=== PATIENT | female | born 1965 | race Caucasian/White ===

== ENCOUNTER 2023-09-11 17:57 | Emergency (ER) | payer BC, SELFPAY ==
--- NOTE | ~2023-09-11 | CT_ITS ---
EXAMINATION: CTA neck DATE: 09/11/2023 21:36 INDICATION: Numbness TECHNIQUE: Computed tomographic angiography (CTA) of the neck was performed with 100 mL Omnipaque-350 intravenous contrast. Automated exposure control and iterative reconstruction technique were employe d. The dose-length product was 569.49 mGy-cm. Maximum intensity projection and volume rendered 3D-re constructions were created by the technologist on a separate workstation. COMPARISON: CT C-spine, same date. FINDINGS: CTA NECK: Aortic arch and proximal great vessels: Bovine arch. No aneurysm or dissection. Right common carotid, carotid bifurcation, and internal carotid artery: No significant plaque.There i s 0% stenosis of the proximal right internal carotid artery relative to normal distal artery lumen di ameter (NASCET criteria). Left common carotid, carotid bifurcation, and internal carotid artery: No significant plaque.There is 0% stenosis of the proximal left internal carotid artery relative to normal distal artery lumen diam eter (NASCET criteria). Vertebral arteries: No significant plaque or stenosis. Right vertebral artery is dominant, Other findings: Subcentimeter left thyroid hypodensity which requires no additional evaluation at thi s time. IMPRESSION: No carotid or vertebral artery occlusion, dissection, or significant stenosis. Reviewed, dictated and finalized at location K. ITORY OUTSIDE SALES MANAGER
--- NOTE | ~2023-09-11 | CT_ITS ---
EXAMINATION: CT cervical spine wo con DATE: 09/11/2023 19:19 INDICATION: paraesthesia TECHNIQUE: Computed tomography (CT) of the cervical spine was performed without intravenous contrast. Automated exposure control and iterative reconstruction technique were employed. The dose-length pro duct was 538.35 mGy-cm. COMPARISON: 06/24/2023. FINDINGS: Vertebral Body Alignment: Intact. Reversed lordosis. Craniocervical and atlantoaxial alignment: Moderate degenerative change. Alignment intact. Osseous structures/fracture: No evidence of a lytic or blastic process in the visualized spine. No e vidence of acute fracture. Right C2-3 facet fusion. Cervical soft tissues: The paraspinal soft tissues planes are maintained. Mosaic attenuation in the l ungs. Degenerative changes: Degenerative changes, without severe neural foraminal or central canal narrowin g. IMPRESSION: No acute fracture or traumatic malalignment in the cervical spine. Mosaic attenuation which can be seen with asthma, bronchiolitis obliterans, hypersensitivity pneumoni tis, and chronic thromboembolic disease. Reviewed, dictated and finalized at location K. GER DIGITAL IMPRESSION: No acute fracture or traumatic malalignment in the cervical spine. Mosaic attenuation which can be seen with asthma, bronchiolitis obliterans, hyp ersensitivity pneumonitis, and chronic thromboembolic disease.
[2023-09-11 18:04] VITALS: BP 113/76; PULSE 76; RESP 20; O2SAT 100
--- NOTE | 2023-09-11 18:10 | ED.GENADULT ---
HPI - General Adult General Chief complaint: Unspecified <Gaye Menjivar November, DIE MAINTENANCE - Last Filed: 09/11/23 18:13> Stated complaint: tingling all over <Gaye Menjivar November, DIE MAINTENANCE - Last Filed: 09/11/23 18:13> Time Seen by Provider: 09/11/23 18:10 <Gaye Menjivar November, DIE MAINTENANCE - Last Filed: 09/11/23 18:13> Focused HPI: Irene Maxwell is a 58 y/o female who presents today wt reports of having sporadic paraesthesia / sharp pins and needles that has been off and on to her arms/ neck/ head/ legs / genitals/ back. She states that she had a concussion in June and she had neck adjustment by a chiropractor 6 days ago and then her symptoms started the following day, but becoming more frequent and she isn't able to sleep due to the sharp pains. She also adds that she is currently titrating off of her Paxil and that might be causing her symptoms and she also started a new supplement Adrenal Caps 5 days ago No focal weakness on exam GENERAL: Well-appearing, well-nourished, and in no acute distress. HEAD: Normocephalic, atraumatic. CHEST: Clear to auscultation. ?No respiratory distress. HEART: Regular rate and rhythm.? NEURO: ?Alert and oriented x3. Patient screened in triage and initial orders placed.? ?Additional care and disposition to be based upon?diagnostic testing and treatment. <Gaye Menjivar November, DIE MAINTENANCE - Last Filed: 09/11/23 18:13> Focused HPI: Irene Maxwell is a 58 y/o female who presents today with reports of having sporadic paraesthesia / sharp pins and needles that has been off and on to her arms/ neck/ head/ legs / genitals/ back. She states that she had a concussion in June and she had neck adjustment by a chiropractor 6 days ago and then her symptoms started the following day, but becoming more frequent and she isn't able to sleep due to the sharp pains. She also adds that she is currently titrating off of her Paxil and that might be causing her symptoms and she also started a new supplement Adrenal Caps 5 days ago. No focal weakness on exam. GENERAL: Well-appearing, well-nourished, and in no acute distress. HEAD: Normocephalic, atraumatic. CHEST: Clear to auscultation. ?No respiratory distress. HEART: Regular rate and rhythm.? NEURO: ?Alert and oriented x3. Patient screened in triage and initial orders placed.? ?Additional care and disposition to be based upon?diagnostic testing and treatment. <Kaci Wilson MD - Last Filed: 09/11/23 22:05> Related Data Allergies/adverse reactions: Allergies Allergy/AdvReac Type Severity Reaction Status Date / Time Penicillins Allergy Unknown Verified 09/11/23 19:53 Sulfa (Sulfonamide AdvReac Unknown Verified 09/11/23 19:53 Antibiotics) <Gaye Ervin APRN - Last Filed: 09/11/23 18:13> Review of Systems Review of Systems: All systems are reviewed and are negative unless stated otherwise in the HPI. <Kaci Wilson MD - Last Filed: 09/11/23 22:05> ROS unobtainable: Yes unobtainable due to endotracheal tube <Kaci Wilson MD - Last Filed: 09/11/23 22:05> Exam Narrative: General: Alert, awake, afebrile, in no acute distress. HEENT: PERRL, no rhinorrhea, no post nasal drip, oropharynx clear. Neck: Trachea midline, no JVD, no lymphadenopathy. Cardiovascular: Regular rate and rhythm, no murmurs, rubs or gallops, no peripheral edema. Respiratory: Clear to auscultation bilaterally, no tachypnea, no wheezing, no rhonchi, no rubs, no respiratory distress. Abdomen: Soft, nontender, nondistended, no rebound, no guarding, no peritoneal signs. Musculoskeletal: No joint swelling or deformity, normal muscle tone. Skin: No rashes or petechia, no signs of infection. Psychiatric: Alert and oriented, normal behavior and judgment for situation. Neurological: Alert and oriented to person, place, and time. Follows all commands. No focal deficits, speech is clear and fluent. <Kaci Wilson MD - Last Filed: 09/11/23 22:05> Course Vital Signs Vital signs: Vital Signs
[2023-09-11 18:27] LABS: Basophils Percent Auto 0.3 % (0.2-1.2); Eosinophils Absolute Auto 0.1 K/mm3 (0-0.3); Eosinophils Percent Auto 1.1 % (0-4.4); Hematocrit 36.9 % (37.0-47.0); Hemoglobin 11.8 g/dL (12.0-15.0); Immature Granulocyte Absolute 0.01 K/mm3 (0.00-0.031); Immature Granulocyte Percent A 0.1 % (0-0.5); Lymphocytes Absolute Auto 2.86 K/mm3 (0.9-3.2); Lymphocytes Percent Auto 38.9 % (18.3-44.2); Mean Corpuscular Hemoglobin 30.3 pg (26-34); Mean Corpuscular Volume 94.6 fl (80-100); Mean Platelet Volume 10.3 fl (7.4-10.4); Monocytes Absolute Auto 0.5 K/mm3 (0.1-0.6); Monocytes Percent Auto 6.4 % (2.6-8.5); Neutrophils Absolute Auto 3.9 K/mm3 (1.3-6.7); Neutrophils Percent Auto 53.2 % (45.5-73.1); Platelet Count Result 317 k/mm3 (150-375); Red Cell Distribution Width 12.6 % (11.5-14.5); White Blood Count 7.4 K/mm3 (4.5-10.0)
[2023-09-11 18:37] LABS: Alanine Aminotransferase 25 U/L (6-35); Albumin Level 4.2 g/dL (3.5-5.1); Alkaline Phosphatase 69 U/L (38-126); Anion Gap 6 mmol/L (8-16); Aspartate Amino Transferase 31 U/L (14-36); Bilirubin,Total 0.3 mg/dL (0.2-1.3); Blood Urea Nitrogen 13 mg/dL (7-17); Calcium 9.2 mg/dL (8.4-10.2); Carbon Dioxide 28 mmol/L (22-30); Chloride 104 mmol/L (98-107); Estimated CRCL calculation 83 ml/min; Estimated Glomerular Filt Rate > 60; Glucose 92 mg/dL (65-110); Potassium 3.9 mmol/L (3.4-5.0); Sodium 138 mmol/L (137-145)
[2023-09-11 19:49] VITALS: BP 116/88; PULSE 72; RESP 13; O2SAT 100
[2023-09-11 19:53] VITALS: BP 116/88; PULSE 77; PULSE 81; RESP 20; TEMP 36.4; O2SAT 99
[2023-09-11 22:16] VITALS: BP 132/70; PULSE 65; RESP 18; TEMP 36.7; O2SAT 100
== END 2023-09-11 22:17 | disposition home or self-care (01) ==
PROVIDERS: Nurse Practitioner Family; Emergency Provider Emergency Medicine; PCP Internal Medicine
DX: R20.2 Paresthesia of skin (principal)
CPT/HCPCS: 36415; 70498; 72125; 80053; 83735; 85025; 99284; Q9967

== ENCOUNTER 2024-10-13 00:55 | Emergency (ER) | payer BC, SELFPAY ==
[2024-10-13] VITALS (24 sets, daily range): BP systolic 90–128; BP diastolic 49–98; PULSE 61–96; RESP 9–19; TEMP 36.6; O2SAT 97–100
--- OUTSIDE RECORDS SUMMARY | 2024-10-13 00:58 | XMS_ITS | Encounter Summary ---
Author Organization [facility] Address [address] [place] [address] Care Team Providers Care Job Putter Up And Ticket Preparer Name Role Phone Thuan Rowell MD Unavailable Ba Lockett MD Primary Care Provider [phone] Valery Shirley DO Primary Care Provider Ba Lockett MD Primary Care Provider [phone] Ze Alberts MD Primary Care Provider [phone] Encounter Details Date Type Department Care Team (Late st Contact Info) Description 02/10/2009 [facility] Outpatient Visit [facility] [address] [place] [address] Unknown, Provider Social History Tobacco Use Types Packs/Day Years Used Date Smoking Tobacco: Never Alcohol Use Standard Drinks/Week Comments Yes 0 (1 standard drink = 0.6 oz pur e alcohol) Sex and Gender Information Value Date Recorded Sex Assigned at Not on file Gender Identity Not on file Sexual Orientation Not on file documented as of this encounter Plan of Treatment Not on file documented as of this encounter Visit Diagnoses Not on filedocumented in this encounter Care Teams Job Putter Up And Ticket Preparer Relationship Specialty Start Date End Date Thuan Rowell MD PCP - OBGYN Obstetrics and Gynecology 11/22/12 Ba Lockett MD [address] [address] PCP - General Internal Medicine 05/20/13 04/02/18 Valery Shirley DO [address] [address] PCP - General Immunology 04/03/18 03/02/22 Ba Lockett MD [address] [address] PCP - General 03/03/22 03/17/22 Ze Alberts MD [address] [facility] [address] [place] [address] PCP - General 03/18/22 documented as of this encounter
--- OUTSIDE RECORDS SUMMARY | 2024-10-13 00:58 | XMS_ITS | Clinical Summary ---
Author Organization [facility] Address [address] [place] [id number] Phone Care Team Providers Care Workers' Compensation Claims Supervisor Name Role Phone Unavailable Primary Care Provider Unavailabl e Allergies Active Allergy Reactions Criticality Noted Date Comments Penicillins Rash Low 11/25/2023 Sulfa (Sulfonamide Antibiotics) Rash Low 11/07 Medications chlorpheniramine -HYDROcodone (TUSSIONEX) 8-10 mg/5 mL Suspension, Sust. Release 12HRIndications: Pneumonia of left lower lobe due to infectious organism Take 5 mL by mouth every 12 hours as needed for Cough. Max Daily Amount: 10 mL 140 mL 11/25/2023 Active Encounters Date Type Department Care Team Description 10/08/2024 External Device Data [facility]STRACTION Provider, Abstract 09/24/2024 External Device Data [facility] Provider, Abstract 09/18/2024 External Device Data [facility] Provider, Abstract 09/17/2024 External Device Data [facility] Provider, Abstract 09/14/2024 External Device Data [facility] Provider, Abstract 09/13/2024 External Device Data [facility] Provider, Abstract 09/11/2024 External Device Data [facility] Provider, Abstract 09/10/2024 External Device Data [facility] Provider, Abstract 09/03/2024 External Device Data [facility] Provider, Abstract 08/13/2024 External Device Data [facility] Provider, Abstract 08/06/2024 External Device Data [facility] Provider, Abstract 08/01/2024 External Device Data [facility] Provider, Abstract 07/23/2024 External Device Data [facility]CTION Provider, Abstract from Last 3 Months Social History Tobacco Use Types Packs/Day Years Used Date Smoking Tobacco: Unknown Feeling Safe Answer Date Recorded Are you in a relationship wi th someone who hurts you emotionally and/or physically? No 11/25/2023 Comments Unknown Sex and Gender Information Value Date Recorded Sex Assigned at Not on file Legal Sex Female 6:14 PM PROCESS WORKER Gender Identity Not on file Sexual Orientation Not on file Last Filed Vital Signs Vital Sign Reading Time Taken Comments Blood Pressure 105/63 11/25/2023 8:45 AM CDT Pulse 74 11/25/2023 8:45 AM CDT Temperature 36.6 C (97.9 F) 11/25/2023 7:53 AM CDT Respiratory Rate 20 11/25/2023 7:53 AM CDT Oxygen Saturation 94% 11/25/2023 8:45 AM CDT Inhaled Oxygen Concentration - - Weight 98.4 kg (217 lb) 11/25/2023 7:53 AM CDT Height 170.2 cm (5' 7 ) 11/25/2023 7:53 AM CDT Body Mass Index 33.99 11/25/2023 7:53 AM CDT Plan of Treatment Health Maintenance Due Date Last Done Comments Pre-Diabetes and Diabetes Screening 1966 HEPATITIS B VACCINES (1 of 3 - 19+ 3-dose series) 1985 HPV/Cotest (21-29) 09/09/1987 HPV/Cotest (30-65) 1996 COLORECTAL SCREENING 09/09/2011 Colorectal Cancer Screening 09/09/2011 FIT-DNA Q 3 years 09/09/2011 FIT/FOBT Q 1 year 09/09/2011 Flex Sig/CT Colonography Q 5 years 09/09/2011 CERVICAL CANCER SCREENING 03/18/2023 PAP SMEAR 03/18/2023 03/18/2020 BREAST CANCER SCREENING 12/08/2023 12/08/19 23, 12/07/2022, 10/12/2021, Additional history exists INFLUENZA VACCINE (#1) 2024 3, 04/22/2020, 04/09/2019 COVID-19 Vaccine (2023-2 5 season) 2024 03/04/2022, 09/07/2021, 08/28/2020, Additional history exists DTAP/TDAP/TD VACCINES (3 - T d or Tdap) 06/12/2033 06/12/2023, 07/10/2006 ZOSTER VACCINE Completed 08/07/2018, 02/06/2018 Insurance [facility] [employer]
--- OUTSIDE RECORDS SUMMARY | 2024-10-13 00:58 | XMS_ITS | Clinical Summary ---
Author Organization [facility] [employer] Address [address] [place] [address] Care Team Providers Care Oracle Security Consultant Name Role Phone Thuan Rowell MD Unavailable [phone] Ze Alberts MD Primary Care Provider [phone] Source Comments [facility] [employer],non-owned Affiliates and Associated Physician Practices is amultiple site organization consisting of ambulatory clinics and hospital sitesin [place], [place], [place] and [place]. This disclosure is being madepursuant to the Care Everywhere program and may not contain all information available regarding this patient. Last updated 18.[facility] Allergies Active Allergy Reactions Criticality Noted Date Comments Adhesive Sensitivity Rash Medium Penicillins Rash 01/13/2009 Sulfa Drugs Rash Medium Medications * Be aware that medications may not be up to date on this document. Alwaysverify current medications with the patient. Medication Sig Dispensed Refills Start Date End Date Status MULTI-VITAMIN PO Take by mouth daily. Active fish oil/omega-3 fatty acids (FISH OIL) 1000 MG capsule Take 2000 mg by mouth daily. 1000, 2 daily Active Conj Estrogens-Bazedoxif wiliam (DUAVEE) 0.45-20 MG Active PARoxetine HCl (PAXIL PO) Take 40 mg by mouth at bedtime Active Loperamide (IMODIUM) 2 MG tablet Take 1 tablet by mouth 4 times daily as needed for Diarrhea 20 tablet 04/03/2018 Active Additional Information Patient not taking.Reported on 01/03/2023 Cholecalciferol (VITAMIN D3) 400 UNITS tablet Take 2,000 Units by mouth once daily Active Glucosamine-Chondro itin (GLUCOSAMINE CHONDR COMPLEX PO) Active ezetimibe (ZETIA) 10 MG tablet 12/01/2017 Active Bijuva 1-100 MG CAPS 12/31/2022 Active rosuvastatin (Crestor) 10 MG tablet 10/07/2022 Active predniSONE (Deltasone) 10 MG tablet Take 4 tablets daily for 4 days, take 3 tablets daily for 2 days, take 2 tablets daily for 2 days, then take 1 tablet daily for 2 days 28 tablet 01/03/2023 Active triamcinolone acetonide (Kenalog) 0.1 % cream Apply to affected area 3 times daily 30 g 01/03/2023 Active Active Problems Problem Noted Date Diagnosed Date Colitis 04/03/2018 Intractable vomiting with nausea 04/03/2018 Multiple myeloma 10/27/2016 Cervical radiculopathy 05/14/2009 Neuropathic pain syndrome (non-herpetic) 009 Overview (05/14/2009): Right arm & bilat feet Injury, other and unspecified, knee, leg, ankle, and foot 02/21/2009 Peripheral neuropathy 02/04/2009 Cervical spondylosis 02/04/2009 Lumbosacral spondylosis 02/04/2009 Hypercholesteremia 01/13/2009 DJD (degenerative joint disease) of cervical spi ne 01/13/2009 Overview (01/13/2009): LUMBAR AND THORACIC Migraine 01/13/2009 Resolved Problems Problem Noted Date Diagnosed Date Resolved Date Dysenteric diarrhea 04/03/2018 04/05/20 18 Female stress incontinence 01/13/2009 0 02/04/2009 Overview (02/04/2009): Resolved off caffeine Immunizations Name Administration Dates Next Due DTaP VACCINE IM (6wk-6yrs) 07/10/2006 INFLUENZA VACCINE 07/10/2007 PPD 07/10/2007 Family History Medical History Relation Name Comments Heart Disease Brother Hypercholesterolemia Brother Anemia Father Heart Disease Father Heart Failure Father Hypercholesterolemia Father Arthritis Mother Heart Disease Mother Heart Failure Mother Hypercholesterolemia Mother Hypertension Mother Relation Name Status Comments Brother Father Mother Social History Tobacco Use Types Packs/Day Years Used Date Smoking Tobacco: Never Smokeless Tobacco: Never Tobacco Cessation:Counseling Given: No Alcohol Use Standard Drinks/Week Comments No 0 (1 standard drink = 0.6 oz pur e alcohol) PHQ-2 Answer Date Recorded PHQ2 TOTAL SCORE 0 01/03/2023 Sex and Gender Information Value Date Recorded Sex Assigned at Not on file Gender Identity Not on file Sexual Orientation Not on file Last Filed Vital Signs Vital Sign Reading Time Taken Comments Blood Pressure 122/65 01/03/2023 3:34 PM CDT Pulse 78 01/03/2023 3:34 PM CDT Temperature 36.6 C (97.8 F) 01/03/2023 3:34 PM CDT Respiratory Rate 18 01/03/2023 3:34 PM CDT Oxygen Saturation 99% 01/03/2023 3:34 PM CDT Inhaled Oxygen Concentration 98% 04/03/2018 4 :27 AM CDT Weight 108.9 kg (240 lb) 01/03/2023 3:34 PM CDT Height 171.5 cm (5' 7.5 ) 01/03/2023 3:34 PM CDT Body Mass Index 37.03 01/03/2023 3:34 PM CDT Plan of Treatment Health Maintenance Due Date Last Done Comments COLOGUARD (AGES 45-75) - COLON CA SCREENING 1966 COLON MONITORING 1966 COLONOSCOPY - COLON CA SCREENING 1966 CT COLONOGRAPHY - COLON CA SCREENING 1966 Colorectal Cancer Screening 1966 FIT - COLON CA SCREENING 1966 FLEX SIG - COLON CA SCREENING 1966 HIV SCREENING 1981 HEPATITIS C SCREENING 09/03/1984 HEPATITIS B VACCINE (1 of 3 - 19+ 3-dose series) 1985 PNEUMOCOCCAL VACCINE 50+ (1 of 2 - PCV) 1985 PNEUMOCOCCAL VACCINE (1 of 2 - PCV) 1985 ZOSTER VACCINE (1 of 2) 1985 PAP SMEAR 04/02/2012 04/02/2009 DTAP/TDAP/TD VACCINES (2 - Tdap) 07/10/2016 07/10/2006 COVID-19 VACCINE ( season) 2024 05/02/2022, 03/04/2022, 09/07/2021, Additional history exists DEPRESSION SCREENING 07/10/2024 01/03/2023 MAMMOGRAM 12/07/2024 12/07/2022, 11/07, 10/07/2011, Additional history exists INFLUENZA VACCINE (Season Ended) 2025 04/22/2020, 04/09/2019, 04/19/2016, Additional history exists HIB VACCINE Aged Out No longer eligi ble based on patient's age to complete this topic HPV VACCINE Aged Out No longer eligi ble based on patient's age to complete this topic MENINGOCOCCAL (Group B) VACCINE SHARED DECISION-MAKING Aged Out No longer eligible based on patient's age to complete this topic MENINGOCOCCAL GROUPS A/C/Y/W VACCINE Aged Out No longer eligible based on patient's age to complete this topic Procedures Procedure Name Priority Date/Time Associated Diagnosis Comments MAMMO BILAT DIAGNOSTIC Routine 11/22/2012 3:27 PM CDT Lump or mass in breast PAP THINPREP Routine 04/02/2009 from Last 3 Months or Most Recently Relevant to Health Maintenance Results * (ABNORMAL) ZEE DIAG DIRECT DIG IMAGE BILATERAL G0204 (11/22/2012 3:27 PM CDT) Anatomical Region Laterality Modality Bilateral Mammography 11/22/2012 3:28 PM CDT Narrative 11/22/2012 3:28 PM CDT EXAMINATION: Bilateral digital diagnostic mammogram and left breast ultrasound on 11/22/2012. INDICATION: Palpable left breast lump. Routine mammogram right breast. FINDINGS: Computer assisted detection was utilized. The tissue density is dense which decreased the overall sensitivity of the mammogram. Three views of each breast are obtained including the spot compression images of the left breast with a marker over at the area clinical concern. There is no discrete mass, suspicious calcification or significant new finding since the prior mammogram especially in the left breast near the marker. Targeted left breast sonogram is then performed. There is a wider than taller smoothly marginated hypoechoic nodule posterior to the nipple measuring 9.2 x 6.8 x 13.5 mm in diameter not corresponding to the palpable area. The finding probably a fibroadenoma. It is not identified on the mammogram. Short-term followup recommended. ASSESSMENT: BIRADS Category 3: Probably benign finding. Short interval follow up suggested. RECOMMENDATION: Left breast mammogram and sonogram in six months. Procedure Note Eduardo Silva MD - 11/22/2012 EXAMINATION: Bilateral digital diagnostic mammogram and left breast ultrasound on 11/22/2012. INDICATION: Palpable left breast lump. Routine mammogram right breast. FINDINGS: Computer assisted detection was utilized. The tissue density is dense which decreased the overall sensitivity of the mammogram. Three views of each breast are obtained including the spot compression images of the left breast with a marker over at the area clinical concern. There is no discrete mass, suspicious calcification or significant new finding since the prior mammogram especially in the left breast near the marker. Targeted left breast sonogram is then performed. There is a wider than taller smoothly marginated hypoechoic nodule posterior to the nipple measuring 9.2 x 6.8 x 13.5 mm in diameter not corresponding to the palpable area. The finding probably a fibroadenoma. It is not identified on the mammogram. Short-term followup recommended. ASSESSMENT: BIRADS Category 3: Probably benign finding. Short interval follow up suggested. RECOMMENDATION: Left breast mammogram and sonogram in six months. Thuan Rowell MD MAMMO ORDERABLES * PAP THINPREP (04/02/2009) Cervical swab (specimen) PART OF UTERINE CERVIX / Unknown 04/02/2009 [facility] - 05/07/2009 12:40 PM CDT Preferred Lab:->OTHER EXTERNAL LAB Melida Bryant MD LAB - PATHOLOGY/CY TOLOGY ORDERABLES [facility] from Last 3 Months or Most Recently Relevant to Health Maintenance Advance Directives * Full Code (Latest Code Status on File) Date Activated Date Inactivated Comments 04/03/2018 4:27 AM 04/05/2018 7:09 PM Care Teams Oracle Security Consultant Relationship Specialty Start Date End Date Thuan Rowell MD PCP - OBGYN Obstetrics and Gynecology 11/22/12 Ze Alberts MD [address] [facility] [address] [place] [address] PCP - General 03/18/22
--- NOTE | 2024-10-13 01:05 | ECG_ITS ---
Test Date: 2024-10-13 01:24:42 Measurements Intervals [place] Rate: 63 P: 15 IN: 130 QRS: 39 QRSD: 102 T: 35 QT: 415 QTc: 428 Interpretive Statements SINUS RHYTHM WITH SINUS ARRHYTHMIA INCOMPLETE RIGHT BUNDLE BRANCH BLOCK BASELINE ARTIFACT- V5 BORDERLINE ECG No previous ECG available for comparison Electronically Signed On 10-13-2024 07:32:48 CDT by Naren Brewer D.O.
[2024-10-13 01:23] LABS: Basophils Percent Auto 0.2 % (0.2-1.2); Eosinophils Absolute Auto 0.1 K/mm3 (0-0.3); Eosinophils Percent Auto 1.4 % (0-4.4); Hematocrit 36.5 % (37.0-47.0); Immature Granulocyte Absolute 0.01 K/mm3 (0.00-0.031); Immature Granulocyte Percent A 0.2 % (0-0.5); Lymphocytes Absolute Auto 3.08 K/mm3 (0.9-3.2); Lymphocytes Percent Auto 47.8 % (18.3-44.2); Mean Corpuscular HGB Conc 32.9 g/dl (32-36); Mean Corpuscular Hemoglobin 30.3 pg (26-34); Mean Corpuscular Volume 92.2 fl (80-100); Mean Platelet Volume 10.4 fl (7.4-10.4); Monocytes Absolute Auto 0.5 K/mm3 (0.1-0.6); Monocytes Percent Auto 8.4 % (2.6-8.5); Neutrophils Absolute Auto 2.7 K/mm3 (1.3-6.7); Platelet Count Result 290 k/mm3 (150-375); Red Blood Count 3.96 M/mm3 (4.2-5.4); Red Cell Distribution Width 12.7 % (11.5-14.5); White Blood Count 6.5 K/mm3 (4.5-10.0)
[2024-10-13 01:33] LABS: Acetaminophen < 10 ug/mL (10-30); Alanine Aminotransferase 25 U/L (6-35); Alkaline Phosphatase 55 U/L (38-126); Anion Gap 9 mmol/L (4-12); Aspartate Amino Transferase 30 U/L (14-36); Bilirubin,Total 0.3 mg/dL (0.2-1.3); Blood Urea Nitrogen 14 mg/dL (7-17); Calcium 8.9 mg/dL (8.4-10.2); Carbon Dioxide 27 mmol/L (22-30); Chloride 104 mmol/L (98-107); Estimated CRCL calculation 88 ml/min; Estimated Glomerular Filt Rate > 60; Ethanol < 10 mg/dL (<10); Glucose 97 mg/dL (65-110); Salicylate < 1.0 mg/dL (2-20); Sodium 140 mmol/L (137-145)
[2024-10-13 01:36] LABS: BEDSIDEPREGUCG Negative (Negative)
--- NOTE | 2024-10-13 01:39 | PC.NURSE ---
this rn spoke with Elizabeth RN at poison control who states moderate to mild symptoms such as tachycardia, hypertension, nausea, vomiting, jerking. pt took a subtoxic dose. Elizabeth recommends an observation for 4 hours. Elizabeth states to obtain x1 more ekg prior to discharge/ crisis arrival. Elizabeth recommends sodium bicarb for widended QRS and potassium and magnesium for prolonged QT intervals. Elizabeth from posion control states that that she would fax an information sheet
[2024-10-13 01:58] LABS: SARS-CoV-2 RNA PCR Negative (Negative)
[2024-10-13 02:01] LABS: Add Urine Microscopic? YES; Appearance Urine Cloudy (Clear); Bacteria Urine 1+ /hpf; Bilirubin Urine Negative (Negative); Blood Urine 1+ (Negative); Color Urine Yellow (Yellow); Glucose Urine UA Negative (Negative); Ketones Urine Negative (Negative); Leukocyte Esterase Ur Negative LEU/UL (Negative); Nitrate Urine Negative (Negative); Non Pathogenic Casts 0-2; Protein Urine Negative (Negative); Specific Grav Ur 1.008 (1.001-1.035); Squamous Epithelial Cell Urine Occasional /hpf (Few); Urobilinogen Urine 0.2 mg/dL (<2.0); pH Urine 6.5 (5.0-9.0)
--- NOTE | 2024-10-13 02:07 | PC.NURSE ---
patient utilizes the call light correctly stating that she is having visual hallucinations of the glove boxes on the wall moving.
[2024-10-13 02:13] LABS: Amphetamine Screen Urine Negative (Negative); Barbiturate Screen Urine Negative (Negative); Benzodiazepines Screen Urine Negative (Negative); Cannabinoid Screen Urine Negative (Negative); Cocaine Screen Urine Negative (Negative); Methadone Screen Urine Negative (Negative); Opiate Screen Urine Negative (Negative); Phencyclidine Screen Urine Negative (Negative)
--- NOTE | 2024-10-13 02:45 | PC.NURSE ---
this rn updated patient home medications.
--- NOTE | 2024-10-13 02:47 | ECG_ITS ---
Test Date: 2024-10-13 02:50:53 Measurements Intervals [place] Rate: 69 P: 63 VT: 133 QRS: 42 QRSD: 108 T: 8 QT: 416 QTc: 448 Interpretive Statements SINUS RHYTHM INCOMPLETE RIGHT BUNDLE BRANCH BLOCK BORDERLINE ST-T WAVE ABNORMALITY- ANT/INF LEADS BORDERLINE ECG Compared to ECG 10/13/2024 01:24:42 NO SIGNIFICANT CHANGE Electronically Signed On 10-13-2024 07:34:17 CDT by Naren Brewer D.O.
--- NOTE | 2024-10-13 02:57 | PC.NURSE ---
patient appropriately using call light to state that she is having increased chest pain and increased visual hallucinations and now having auditory hallucinations of a womans voice. pt states she is unsure of what the voices are stating to her but denies being controlled by them at this time. edp dr. baker aware of patient condition changes. no new orders at this time.
--- NOTE | 2024-10-13 03:47 | PC.NURSE ---
patient appropriately used call light to state she needed to use the restroom. pt states she is unsure if she can walk to the bathroom due to feeling her legs are cramping and feel weak. thsi rn offered patient a bedpan at this time. pt placed on a bed izquierdo and was able to use the bed izquierdo appropriately. After patient states she has finished using the bed izquierdo and bed izquierdo removed patient continued to urinate. pt states she is unaware that she was continuing to urinate at this time. pt was given a partial bed bath, sheets and gown changed at this time.
--- NOTE | 2024-10-13 03:54 | PC.NURSE ---
patient given water/ white soda/ saltine crackers at this time due to patient request. pt able to keep food/ drink down at this time successfully.
--- NOTE | 2024-10-13 06:15 | PC.NURSE ---
per kiln charger J[facility] crisis to be called to evaluate patient.
--- NOTE | 2024-10-13 06:21 | ED_ITS ---
HPI - Overdose General Chief Complaint: Overdose Stated Complaint: depression, overdose on benadryl Time Seen by Provider: 10/13/24 06:20 Source: patient and family ( Elizabeth) Mode of arrival: ambulatory Limitations: no limitations History of Present Illness HPI Narrative: Patient presents after overdosing on diphenhydramine in a suicide attempt. She reports being overwhelmed with a lot of life stressors and did not how much more she could take. She reports taking approximately 13 tablets of 25 mg diphenhydramine between 29 and 44. She initially stated she immediately regretted this and check it out and try to force herself to vomit but was unable to. She states lately she has been stress eating but otherwise denies any self- injurious behavior. She is on 10 mg Paxil daily. Nurse reports initially she was having visual and auditory hallucinations. Nurse called [facility] who advised on what to watch for, given observation period timeline, and advised watching for HTN. She had transiently had some hypotension overnight. Also had been incontinent. At the time of my assessment, patient is no longer having visual and auditory hallucinations. She has no complaints. She is appropriately answering all questions. She denies any prior times. No previous hospitalizations and mental health facility. She denies any access to guns. Has a supportive partner at bedside. Related Data Home Medications ?Medication ?Instructions ?Recorded ?Confirmed ?Last Taken ?Type estradiol 1 mg-progesterone 100 mg 1 cap PO QPM 10/13/24 10/13/24 Unknown History capsule (Bijuva) ezetimibe 10 mg tablet 10 mg PO DAILY 10/13/24 10/13/24 Unknown History methylphenidate HCl 20 mg 20 mg PO QPM 10/13/24 10/13/24 Unknown History tablet,extended release methylphenidate HCl 5 mg tablet 5 mg PO QPM 10/13/24 10/13/24 Unknown History paroxetine HCl 10 mg tablet 10 mg PO DAILY 10/13/24 10/13/24 Unknown History rosuvastatin 10 mg tablet 10 mg PO DAILY 10/13/24 10/13/24 Unknown History Allergies Allergy/AdvReac Type Severity Reaction Status Date / Time Penicillins Allergy Unknown Verified 10/13/24 01:37 Sulfa (Sulfonamide AdvReac Unknown Verified 10/13/24 01:37 Antibiotics) [facility] Social History Social History Substance use type: does not use Exam 2 Narrative: GENERAL: Well-appearing, well-nourished, and in no acute distress. HEAD: Normocephalic, atraumatic. EYES: Non injected, non icteric. PERRL, appropriate for light. No ocular clonus ENT: Nares clear, no rhinorrhea or epistaxis. NECK: Supple. CHEST: Speaking in full sentences. No respiratory distress. HEART: Regular rate and rhythm. . ABDOMEN: Soft, nondistended. EXTREMITIES: Normal range of motion. No lower extremity edema. SKIN: Warm, dry, no rash. NEURO: No focal deficits. Alert and oriented x3. No abnormal movements appreciated. PSYCH: Normal / congruent mood and affect. Appearance: Well kempt. Behavior: Calm, good eye contact, in no acute distress. Speech: Appropriate rate, quantity and volume. Endorsed that she had been having SI which prompted her to take the pills. No Auditory/visual hallucinations at the time of my exam. Does not appear to be responding to internal stimuli. Course Vital Signs Vital signs: Vital Signs Temperature 98 F 10/13/24 01:06 Pulse Rate 67 10/13/24 01:06 Respiratory Rate 16 10/13/24 01:06 Blood Pressure 127/69 10/13/24 01:06 Pulse Oximetry 100 10/13/24 01:06 Oxygen Delivery Room Air 10/13/24 01:06 Temperature 98 F 10/13/24 01:06 Pulse Rate 80 10/13/24 08:28 Respiratory Rate 17 10/13/24 08:28 Blood Pressure 121/79 10/13/24 08:28 Pulse Oximetry 99 10/13/24 08:28 Oxygen Delivery Room Air 10/13/24 01:29 MDM - Overdose MDM Narrative Medical decision making narrative: Patient presents after overdosing diphenhydramine in attempted suicide. Reports taking 13 tablets 25mg diphenhydramine between 29 and 44. In the emergency department they are afebrile with vital signs within normal limits. Urine drug screen and alcohol negative. Patient had been incontinent overnight per RN, presume overflow incontinence possibly. CMP unremarkable. Salicylate and acetaminophen normal Urinalysis concerning for possible urinary tract infection. She denies any symptoms such as dysuria, hematuria urgency or frequency but out of an abundance of precaution will treat. Patient is assessed at bedside and is asymptomatic at this time. She has no complaints. Pupils are appropriate. Patient has been able to urinate. At this time she is medically clear for assessment and potential transportation by psych/crisis. TSH had been abnormal but Normal T4. Normal T3. Likely subclinical hypothyroidism. Crisis team spent extensive time with patient and her partner. Patient currently on Paxil and has an appointment with her counselor. Patient exhibits regret for her actions and otherwise can point things that are supportive measures including having resources available to her, a supportive marriage partner/spouse/, and a job that she enjoys. Given this, a long conversation was had regarding the possibility of safety planning and deflecting. All parties (patient, , Crisis team, and myself) feel comfortable with this. I did advise crisis team to discuss with patient and her that would be recommended that she not have access to medications and that they be locked up in the interim given that she had displayed this impulsivity. Patient otherwise stable for discharge. Advised to follow-up with the resources she was provided and return with any new worsening recurring symptoms. Differential Diagnosis Differential diagnosis: Likely drug overdose and other (Suicide attempt by drug overdose; considered serotonin syndrome) Lab Data Attestation: I reviewed the patient's lab results. Lab results narrative: CBC unremarkable 10/13/24 01:16 10/13/24 01:16 Labs: Lab Results 10/13/24 10/13/24 10/13/24 Range/Units 01:16 01:29 01:50 WBC 6.5 (4.5-10.0) K/mm3 RBC 3.96 L (4.2-5.4) M/mm3 Hgb 12.0 (12.0-15.0) g/dL Hct 36.5 L (37.0-47.0) % MCV 92.2 (80-100) fl MCH 30.3 (26-34) pg MCHC 32.9 (32-36) g/dl RDW 12.7 (11.5-14.5) % Plt Count 290 (150-375) k/mm3 MPV 10.4 (7.4-10.4) fl Immature Gran % (Auto) 0.2 (0-0.5) % Neut % (Auto) 42.0 L (45.5-73.1) % Lymph % (Auto) 47.8 H (18.3-44.2) % [place] % (Auto) 8.4 (2.6-8.5) % Eos % (Auto) 1.4 (0-4.4) % Baso % (Auto) 0.2 (0.2-1.2) % Lymph # (Auto) 3.08 (0.9-3.2) K/mm3 [place] # (Auto) 0.5 (0.1-0.6) K/mm3 Eos # (Auto) 0.1 (0-0.3) K/mm3 Baso # (Auto) 0.0 (0.0-0.1) K/mm3 Abs Immat Gran (auto) 0.01 (0.00-0.031) K/mm3 Absolute Neuts (auto) 2.7 (1.3-6.7) K/mm3 Absolute Nucleated RBC 0.000 (0.0-0.012) K/mm3 Nucleated RBC % 0.0 (0.0-0.2) % Sodium 140 (137-145) mmol/L Potassium 4.0 (3.4-5.0) mmol/L Chloride 104 (98-107) mmol/L Carbon Dioxide 27 (22-30) mmol/L Anion Gap 9 (4-12) mmol/L BUN 14 (7-17) mg/dL Creatinine 0.72 (0.7-1.0) mg/dL Estim Creat Clear Calc 88 ml/min Estimated GFR > 60 (59 - ) Glucose 97 (65-110) mg/dL Calcium 8.9 (8.4-10.2) mg/dL Total Bilirubin 0.3 (0.2-1.3) mg/dL AST 30 (14-36) U/L ALT 25 (6-35) U/L Alkaline Phosphatase 55 (38-126) U/L Total Protein 7.0 (6.3-8.2) g/dL Albumin 4.0 (3.5-5.1) g/dL TSH 5.390 H (0.465-4.680) uIU/mL Thyroxine (T4) 7.62 (5.53-11.0) ug/dL Free T3 pg/mL 2.93 (2.71-6.16) pg/mL Urine Color Yellow (Yellow) Urine Appearance Cloudy H (Clear) Urine pH 6.5 (5.0-9.0) Ur Specific [place] 1.008 (1.001-1.035) Urine Protein Negative (Negative) mg/dL Urine Glucose (UA) Negative (Negative) mg/dL Urine Ketones Negative (Negative) mg/dL Ur Blood (Man) 1+ H (Negative) Urine Nitrate Negative (Negative) Urine Bilirubin Negative (Negative) Urine Urobilinogen 0.2 (<2.0) mg/dL Leukocyte Esterase Rfl Negative (Negative) MARLI/UL Urine RBC 3-5 H (0-2) /hpf Urine WBC 6-10 H (0-3) /hpf Ur Squamous Epith Cells Occasional (Few) /hpf Urine Bacteria 1+ H /hpf Urine Casts 0-2 POC Urine HCG, Qual Negative (Negative) Salicylates < 1.0 L (2-20) mg/dL Urine Opiates Screen Negative (Negative) Urine Methadone Screen Negative (Negative) Acetaminophen < 10 L (10-30) ug/mL Ur Barbiturates Screen Negative (Negative) Ur Phencyclidine Scrn Negative (Negative) Ur Amphetamine Screen Negative (Negative) U Benzodiazepines Scrn Negative (Negative) Urine Cocaine Screen Negative (Negative) U Cannabinoids Screen Negative (Negative) Ethyl Alcohol < 10 (<10) mg/dL SARS-CoV-2 RNA (RT-PCR) Negative (Negative) ECG Data EKG #1: Attestation: I personally reviewed and interpreted this ECG as follows: ECG completion date: 10/13/24 ECG completion time: 01:24 Interpretation: Normal sinus rhythm at a rate of 63 beats per minute. IL interval 130. QRS 102. QT/QTC 415/423. There is some R to R variation consistent with a sinus arrhythmia likely due to respiratory variation and otherwise benign finding. Good R-wave progression across the precordial leads. No T-wave inversions. Of note QRS is appropriate. EKG #2: Attestation: I personally reviewed and interpreted this ECG as follows: ECG completion date: 10/13/24 ECG completion time: 02:50 Interpretation: Normal sinus rhythm at a rate of 69 beats per minute. IL interval 133. QRS 108. QT/QTC 416/436. Of note appropriate QRS duration. Good R-wave progression across the precordial leads. T-wave inversion in 3 but upright in contiguous inferior leads 2 and AVF. There also T-wave inversions in V3 and V4. V3 might be due to lead placement. Incomplete RBBB given QRS less [id number]; RSR' M-shaped pattern in V1-V3; to a lesser extent wide, slurred S wave in lateral leads (I, aVL, V5-6) Discharge Plan Discharge Clinical Impression: Intentional drug overdose, Suicide attempt, UTI (urinary tract infection), Subclinical hypothyroidism Patient Disposition: Home Condition: Stable Instructions: Antibiotic Form, Urinary Tract Infection in Women (DC), Subclinical Hypothyroidism (ED), Help Prevent Suicide (ED) Additional Instructions: Follow-up with the resources you are provided including the outpatient therapy option(s). Continue taking your medications as prescribed. Continue working with her therapist. Given the possible urinary tract infection seen on urinalysis, you received the 1st dose of antibiotic in the emergency department with rest the course prescribed. Follow-up with primary care physician. Return to the emergency department any new or worsening or recurring symptoms. Patient Language: Guatemalan Prescriptions: New nitrofurantoin monohyd/m-cryst [Macrobid] 100 mg capsule 100 mg PO Q12H 5 Days Qty: 9 0RF Rx Instructions: must administer with a meal/food; received first dose in ED 4/6 AM No Action Bijuva 1-100 mg capsule 1 cap PO QPM ezetimibe 10 mg tablet 10 mg PO DAILY methylphenidate HCl 20 mg tablet extended release 20 mg PO QPM methylphenidate HCl 5 mg tablet 5 mg PO QPM paroxetine HCl 10 mg tablet 10 mg PO DAILY rosuvastatin 10 mg tablet 10 mg PO DAILY Follow-up/Referrals: [place],Ze Rooney MD [Primary Care Provider] - Stand Alone Forms: Work/School Release IP Time of Disposition: 08:51
--- OUTSIDE RECORDS SUMMARY | 2024-10-13 06:43 | XMS_ITS | Clinical Summary ---
Author Organization [email or web address] Address [address] [facility] [place] [place] [address] Care Team Providers Care Aviation Electrician Name Role Phone Thuan Rowell MD Unavailable [phone] Ze Alberts MD Primary Care Provider [phone] Source Comments [email or web address],non-owned Affiliates and Associated Physician Practices is amultiple site organization consisting of ambulatory clinics and hospital sitesin [place], [place], [place] and [place]. This disclosure is being madepursuant to the Care Everywhere program and may not contain all information available regarding this patient. Last updated 18.[email or web address] Allergies Active Allergy Reactions Criticality Noted Date [...] PART OF UTERINE CERVIX / Unknown 04/02/2009 [facility] - 05/07/2009 12:40 PM CDT Preferred Lab:->OTHER EXTERNAL LAB Melida Bryant MD LAB - PATHOLOGY/CY TOLOGY ORDERABLES [facility] from Last 3 Months or Most Recently Relevant to Health Maintenance Advance Directives * Full Code (Latest Code Status on File) Date Activated Date Inactivated Comments 04/03/2018 4:27 AM 04/05/2018 7:09 PM Care Teams Aviation Electrician Relationship Specialty Start Date End Date Thuan Rowell MD PCP - OBGYN Obstetrics and Gynecology 11/22/12 Ze Alberts MD [address] [facility] [address] [place] [address] PCP - General 03/18/22
--- OUTSIDE RECORDS SUMMARY | 2024-10-13 06:43 | XMS_ITS | Encounter Summary ---
Author Organization [facility] Healthcare Address [address] [place] [address] Care Team Providers Care Shellacker Name Role Phone Ze Alberts MD Primary Care Provider [phone] Ze Alberts MD Unavailable [phone] Referral, Self Unavailable Unavailable Fidel Triana MD Unavailable Antoine Martinez MD Unavailable [phone] Fidel Triana MD Unavailable Reason for Visit * Reason Onset Date Comments order 05/18/2022 Encounter Details Date Type Department Care Team (Late st Contact Info) Description 05/18/2022 Telephone [facility] [place] [facility] [address] [facility] [address] [place] [address] Chritsie Odom MD PhD [address] [place] [address] order Social History Tobacco Use Types Packs/Day Years Used Date Smoking Tobacco: Never Smokeless Tobacco: Never Alcohol Use Standard Drinks/Week Comments Yes 0 (1 standard drink = 0.6 oz pur e alcohol) very seldomly AUDIT-C Answer Date Recorded Q1: How often do you have a drink containing alc ohol? Never 10/29/2021 Q2: How many drinks containi ng alcohol do you have on a typical day when you are drinking? 1 or 2 10/29/2021 Q3: How often do you have si x or more drinks on one occasion? 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 Author CCM Chronic Pain Care Plan Chronic Care Management On track(2023 1:58 PM FILER AND SANDER) No Delisa Sutherland, ANNEL Note: Problem: Chronic Pain Goals: 1. Minimize further functional decline 2. Maximize quality of life 3. Control pain Strategies: - Activity/exercise program recommendation - Conservative stepwise pain medicine strategy with multi-disciplinary approach - Recommend healthy lifestyle strategies and compensatory methods as needed documented as of this encounter Visit Diagnoses Not on filedocumented in this encounter Additional Health Concerns Infection Onset Date Last Indicated Resolved Time Rhino/Enterovirus 09/24/2024 09/24/2024 10/01/2024 3:07 AM CDT documented as of this encounter Care Teams Shellacker Relationship Specialty Start Date End Date Ze Alberts MD [address] [address] PCP - General 09/23/20 Ze Alberts MD [address] [address] Internal Medicine 09/23/20 07/17/23 Referral, Self Referring Physician 12/07/18 07/17/23 Fidel Triana MD Medical Oncologist/Edge Worker Medical Oncology 09/04/20 07/17/23 Antoine Martinez MD Sand System Operator Pulmonary Disease 07/18/23 Fidel Triana MD Medical Oncologist/Edge Worker Medical Oncology 07/18/23 Josesito Santamaria MD [address] [place] [address] Consulting Physician 07/10/16 documented as of this encounter
--- OUTSIDE RECORDS SUMMARY | 2024-10-13 06:44 | XMS_ITS | Encounter Summary ---
Author Organization [facility] Health Address [address] [facility] [place] [place] [address] Care Team Providers Care Thermostat Maker Name Role Phone Thuan Rowell MD Unavailable [phone] Ba Lockett MD Primary Care Provider Valery Shirley DO Primary Care Provider Ba Lockett MD Primary Care Provider [phone] Ze Alberts MD Primary Care Provider [phone] Encounter Details Date Type Department Care Team (Late st Contact Info) Description 02/10/2009 [facility] Outpatient Visit [facility] [address] [place] [address] Unknown, Provider Social History Tobacco Use Types [...] on filedocumented in this encounter Care Teams Thermostat Maker Relationship Specialty Start Date End Date Thuan Rowell MD PCP - OBGYN Obstetrics and Gynecology 11/22/12 Ba Lockett MD [address] [address] PCP - General Internal Medicine 05/20/13 04/02/18 Valery Shirley DO [address] [address] PCP - General Immunology 04/03/18 03/02/22 Ba Lockett MD [address] [address] PCP - General 03/03/22 03/17/22 Ze Alberts MD [address] [facility] [address] [place] [address] PCP - General 03/18/22 documented as of this encounter
--- OUTSIDE RECORDS SUMMARY | 2024-10-13 06:44 | XMS_ITS | Encounter Summary ---
Author Organization [facility] Address [address] [place] [address] Phone Care Team Providers Care Animal Cop Name Role Phone Ze Alberts MD Primary Care Provider [phone] Antoine Martinez MD Unavailable [phone] Fidel Triana MD Unavailable Encounter Details Date Type Department Care Team (Late st Contact Info) Description 09/25/2024 Results Follow-Up [facility] [address] [facility] [address] [place] [address] Areli Rocha, NOLAN [address] DIV IM BONE MARROW TRANSPLANT, [address] [place], [place] [id number] Social History Tobacco Use Types Packs/Day Years Used Date Smoking Tobacco: Never Passive Smoke Exposure: Never Smokeless Tobacco: Never Alcohol Use Standard Drinks/Week Comments Yes 0 (1 standard drink = 0.6 oz pur e alcohol) very seldomly Humiliation, Afraid, Rape, and Kick questionnair e Answer Date Recorded Within the last year, have y ou been afraid of your partner or ex-partner? No 06/12/2023 Within the last year, have y ou been humiliated or emotionally abused in other ways by your partner or ex-partner? No Within the last year, have y ou been kicked, hit, slapped, or otherwise physically hurt by your partner or ex-partner? No 06/12/2023 Within the last year, have y ou been raped or forced to have any kind of sexual activity by your partner or ex-partner? No 06/12/2023 AUDIT-C Answer Date Recorded Q1: How often do you have a drink containing alc ohol? Monthly or less 06/24/2024 Q2: How many drinks containi ng alcohol do you have on a typical day when you are drinking? 1 or 2 06/24/2024 Q3: How often do you have si x or more drinks on one occasion? Never 06/24/2024 PHQ-2 Answer Date Recorded PHQ-2 Total Score (If total score is 3 or more points, staff should administer the PHQ-9) 1 06/12/2023 Exercise Vital Sign Answer Date Recorde d On average, how many days pe r week do you engage in moderate to strenuous exercise (like a brisk walk)? 1 day 06/12/2023 On average, how many minutes do you engage in exercise at this level? 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 Author CCM Chronic Pain Care Plan Chronic Care Management On track(2023 1:58 PM DIRECTOR STYLE) No Delisa Sutherland, RN Note: Problem: Chronic Pain Goals: 1. Minimize [...] documented as of this encounter Care Teams Animal Cop Relationship Specialty Start Date End Date Ze Alberts MD [address] [address] PCP - General 09/23/20 Antoine Martinez MD [address] [address] Dairy Cattle Farm Worker Pulmonary Disease 07/18/23 Fidel Triana MD [address] [place] [address] [address] Medical Oncologist/National Accounts Sales Medical Oncology 07/18/23 Josesito Santamaria MD [address] [place] [address] Consulting Physician 07/10/16 documented as of this encounter
--- OUTSIDE RECORDS SUMMARY | 2024-10-13 06:44 | XMS_ITS | Encounter Summary ---
Author Organization [facility] Healthcare Address [address] [place] [address] Care Team Providers Care Foil Spooler Name Role Phone Valery Shirley DO Primary Care Provider Bertha Hutton MD Primary Care Provider Ze Alberts MD Primary Care Provider [phone] Bertha Hutton MD Primary Care Provider Ze Alberts MD Primary Care Provider Ze Alberts MD Primary Care Provider Ze Alberts MD Unavailable [phone] Referral, Self Unavailable Unavailable Fidel Triana MD Unavailable Antoine Martinez MD Unavailable [phone] Fidel Triana MD Unavailable Reason for Referral * Diagnostic Imaging (Routine) - Closed Specialty Diagnoses / Procedures Referred By Bib osborne Referred To Contact Radiology Diagnoses Colitis Procedures CT Abdomen Pelvis W Contrast CT Abdomen W WO Contrast Valery Shirley DO Phone: tel: fax: [address] [address] Referral ID Status Reason Start Date Expiration Date Visits Re quested Visits Authorized [id number] Closed 04/27/2018 11/06/2019 1 1 Encounter Details Date Type Department Care Team (Late st Contact Info) Description 04/27/2018 Community Orders [facility] EpicCare Link Valery Shirley DO [address] [facility] [address] [facility] [address] [place] [address] Colitis (Primary Dx) Social History Tobacco Use Types Packs/Day Years Used Date Smoking Tobacco: Never Comments Unknown Sex and Gender Information Value Date Recorded Sex Assigned at Not on file Legal Sex Female 10:56 AM HOOP FLARING MACHINE OPERATOR Gender Identity Choose not to disclose 2:17 PM HOOP FLARING MACHINE OPERATOR Sexual Orientation Choose not to disclose 2020 2:17 PM HOOP FLARING MACHINE OPERATOR documented as of this encounter Plan of Treatment Not on file documented as of this encounter Results * CT Abdomen Pelvis W Contrast (05/25/2018 4:55 PM HOOP FLARING MACHINE OPERATOR) Anatomical Region Laterality Modality Body N/A Computed Tomogra phy 05/26/2018 11:4 7 AM HOOP FLARING MACHINE OPERATOR Impressions 05/26/2018 11:47 AM HOOP FLARING MACHINE OPERATOR No CT evidence of colitis or other acute process. Electronically signed by: Paul Jones M.D. Narrative 05/26/2018 11:47 AM HOOP FLARING MACHINE OPERATOR EXAMINATION: Computed tomography of the abdomen and pelvis with intravenous contrast HISTORY: Colitis. 52-Year-old female with indolent/smoldering multiple myeloma TECHNIQUE: Transaxial computed tomographic images of the abdomen and pelvis were obtained with intravenous contrast according to the standard protocol after the uneventful administration of 100 mL Opti-Ray 350 intravenous contrast. COMPARISON: CT abdomen urogram performed on 08/29/2016 FINDINGS: Visualized Chest: Redemonstrated calcified granuloma in the left lower lobe. There is minimal lingular atelectasis. Abdomen/Pelvis: Liver: Subcentimeter densities in segment 4A/8, stable, likely benign cysts. Gallbladder and biliary system: Unremarkable Spleen: Scattered calcified granulomas Adrenal glands: Normal Kidneys: Subcentimeter hypodensity in the right kidney, likely cyst. Otherwise normal Pancreas: Normal Stomach and bowel: Normal. There is no evidence of colonic with thickening, pericolonic fat stranding, or mucosal hyperenhancement to suggest active colitis. Vasculature: Mild atherosclerotic calcifications. Lymph nodes: No enlarged lymph nodes. Numerous subcentimeter retroperitoneal lymph nodes with mild fat stranding, indeterminate, could be within normal. Peritoneum/retroperitoneum: Trace fluid in the pelvis, physiologic in menstrual age females Abdominal wall: Normal Pelvic viscera: Normal Bladder: Normal Skeletal system: No aggressive bone lesions. Scattered sclerotic foci in the pelvic bones and in the right proximal femur, likely benign bone islands. Degenerative changes at L5-S1. Procedure Note Paul Jones MD - 05/26/2018 EXAMINATION: Computed tomography of the abdomen and pelvis with intravenous contrast HISTORY: Colitis. 52-Year-old female with indolent/smoldering multiple myeloma TECHNIQUE: Transaxial computed tomographic images of the abdomen and pelvis were obtained with intravenous contrast according to the standard protocol after the uneventful administration of 100 mL Opti-Ray 350 intravenous contrast. COMPARISON: CT abdomen urogram performed on 08/29/2016 FINDINGS: Visualized Chest: Redemonstrated calcified granuloma in the left lower lobe. There is minimal lingular atelectasis. Abdomen/Pelvis: Liver: Subcentimeter densities in segment 4A/8, stable, likely benign cysts. Gallbladder and biliary system: Unremarkable Spleen: Scattered calcified granulomas Adrenal glands: Normal Kidneys: Subcentimeter hypodensity in the right kidney, likely cyst. Otherwise normal Pancreas: Normal Stomach and bowel: Normal. There is no evidence of colonic with thickening, pericolonic fat stranding, or mucosal hyperenhancement to suggest active colitis. Vasculature: Mild atherosclerotic calcifications. Lymph nodes: No enlarged lymph nodes. Numerous subcentimeter retroperitoneal lymph nodes with mild fat stranding, indeterminate, could be within normal. Peritoneum/retroperitoneum: Trace fluid in the pelvis, physiologic in menstrual age females Abdominal wall: Normal Pelvic viscera: Normal Bladder: Normal Skeletal system: No aggressive bone lesions. Scattered sclerotic foci in the pelvic bones and in the right proximal femur, likely benign bone islands. Degenerative changes at L5-S1. IMPRESSION: No CT evidence of colitis or other acute process. Electronically signed by: Paul Jones M.D. Valery Shirley DO IMG CT PROCEDURES Final Result documented in this encounter Visit Diagnoses Diagnosis Colitis- Primary Other and unspecified noninfectious gastroenteritis and colitis Colitis Other and unspecified noninfectious gastroenteritis and colitis documented in this encounter Additional Health Concerns Infection Onset Date Last Indicated Resolved Time Rhino/Enterovirus 09/24/2024 09/24/2024 10/01/2024 3:07 AM CDT documented as of this encounter Care Teams Foil Spooler Relationship Specialty Start Date End Date Valery Shirley DO PCP - General 08/29/16 08/25/19 Bertha Hutton MD [address] [place] [address] PCP - General Internal Medicine 08/26/19 12/15/19 Ze Alberts MD [address] [address] [address] PCP - General Internal Medicine 12/16/19 12/17/19 Bertha Hutton MD [address] [place] [address] PCP - General Internal Medicine 12/18/19 02/12/20 Ze Alberts MD [address] [address] PCP - General Internal Medicine 03/11/20 09/22/20 Ze Alberts MD [address] [place] [address] PCP - General 09/23/20 Ze Alberts MD [address] [address] Internal Medicine 09/23/20 07/17/23 Referral, Self Referring Physician 12/07/18 07/17/23 Fidel Triana MD Medical Oncologist/Interior Design Teacher Medical Oncology 09/04/20 07/17/23 Antoine Martinez MD Human Resources Temp Pulmonary Disease 07/18/23 Fidel Triana MD Medical Oncologist/Interior Design Teacher Medical Oncology 07/18/23 Josesito Santamaria MD [address] [place] [id number] Consulting Physician 07/10/16 documented as of this encounter
--- OUTSIDE RECORDS SUMMARY | 2024-10-13 06:44 | XMS_ITS | Encounter Summary ---
Author Organization [facility] Address [address] [place] [address] Phone Care Team Providers Care Stuntman Name Role Phone Ze Alberts MD Primary Care Provider [phone] Ze Alberts MD Primary Care Provider [phone] Ze Alberts MD Unavailable [phone] Referral, Self Unavailable Unavailable Fidel Triana MD Unavailable Antoine Martinez MD Unavailable [phone] Fidel Triana MD Unavailable Encounter Details Date Type Department Care Team (Late st Contact Info) Description 06/19/2020 Telephone [facility] Marrow Transplant [facility] Advanced Medicine 7th Floor, [place] [address] Bárbara Fowler V. Social History Tobacco Use Types Packs/Day Years Used Date Smoking Tobacco: Never Smokeless Tobacco: Never Alcohol Use Standard Drinks/Week Comments Yes 0 (1 standard drink = 0.6 oz pur e alcohol) very seldomly Comments No Sex and Gender Information Value Date Recorded Sex Assigned at Not on file Legal Sex Female 10:56 AM RETORT LOAD EXPEDITER Gender Identity Choose not to disclose 2:17 PM RETORT LOAD EXPEDITER Sexual Orientation Choose not to disclose 2020 2:17 PM RETORT LOAD EXPEDITER documented as of this encounter Plan of Treatment Not on file documented as of this encounter Visit Diagnoses Not on filedocumented in this encounter Additional Health Concerns Infection Onset Date Last Indicated Resolved Time Rhino/Enterovirus 09/24/2024 09/24/2024 10/01/2024 3:07 AM CDT documented as of this encounter Care Teams Stuntman Relationship Specialty Start Date End Date Ze Alberts MD [address] [place] [address] PCP - General Internal Medicine 03/11/20 09/22/20 Ze Alberts MD [address] [place] [address] PCP - General 09/23/20 Ze Alberts MD [address] [place] [address] Internal Medicine 09/23/20 07/17/23 Referral, Self Referring Physician 12/07/18 07/17/23 Fidel Triana MD Medical Oncologist/Special Effects Makeup Artist Medical Oncology 09/04/20 07/17/23 Antoine Martinez MD [place] Pulmonary Disease 07/18/23 Fidel Triana MD Medical Oncologist/Special Effects Makeup Artist Medical Oncology 07/18/23 Josesito Santamaria MD [address] [place] [id number] Consulting Physician 07/10/16 documented as of this encounter
--- OUTSIDE RECORDS SUMMARY | 2024-10-13 06:44 | XMS_ITS | Encounter Summary ---
Author Organization [facility] Healthcare Address [address] [place] [address] Care Team Providers Care Patient Navigator Name Role Phone Valery Shirley DO Primary Care Provider Bertha Hutton MD Primary Care Provider Ze Alberts MD Primary Care Provider Bertha Hutton MD Primary Care Provider Ze Alberts MD Primary Care Provider Ze Alberts MD Primary Care Provider Ze Alberts MD Unavailable Referral, Self Unavailable Unavailable Fidel Triana MD Unavailable Antoine Martinez MD Unavailable [phone] Fidel Triana MD Unavailable Encounter Details Date Type Department Care Team (Late st Contact Info) Description 03/01/2018 Community Orders [facility] EpicCare Link Valery Shirley DO [address] [place], [place] [id number] Abnormal blood chemistry (Primary Dx) Social History Tobacco Use Types Packs/Day Years Used Date Smoking Tobacco: Never Comments Unknown Sex and Gender Information Value Date Recorded Sex Assigned at Not on file Legal Sex Female 10:56 AM DIE SINKER APPRENTICE Gender Identity Choose not to disclose 2:17 PM DIE SINKER APPRENTICE Sexual Orientation Choose not to disclose 2020 2:17 PM DIE SINKER APPRENTICE documented as of this encounter Plan of Treatment Not on file documented as of this encounter Visit Diagnoses Diagnosis Abnormal blood chemistry- Primary Other abnormal blood chemistry documented in this encounter Additional Health Concerns Infection Onset Date Last Indicated Resolved Time Rhino/Enterovirus 09/24/2024 09/24/2024 10/01/2024 3:07 AM CDT documented as of this encounter Care Teams Patient Navigator Relationship Specialty Start Date End Date Valery Shirley MayraDO PCP - General 08/29/16 08/25/19 Bertha Hutton MD [address] [place] [address] PCP - General Internal Medicine 08/26/19 12/15/19 Ze Alberts MD [address] [employer] [address] [address] PCP - General Internal Medicine 12/16/19 12/17/19 Bertha Hutton MD [address] [place] [address] PCP - General Internal Medicine 12/18/19 02/12/20 Ze Alberts MD [address] [employer] [address] [address] PCP - General Internal Medicine 03/11/20 09/22/20 Ze Alberts MD [address] [place] [address] PCP - General 09/23/20 Ze Alberts MD [address] [place] [address] Internal Medicine 09/23/20 07/17/23 Referral, Self Referring Physician 12/07/18 07/17/23 Fidel Triana MD Medical Oncologist/Bomb Technician Medical Oncology 09/04/20 07/17/23 Antoine Martinez MD Senior Core Java Developer Pulmonary Disease 07/18/23 Fidel Triana MD Medical Oncologist/Bomb Technician Medical Oncology 07/18/23 Josesito Santamaria MD [address] [place] [id number] Consulting Physician 07/10/16 documented as of this encounter
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
--- OUTSIDE RECORDS SUMMARY | 2024-10-13 06:44 | XMS_ITS | Clinical Summary ---
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 Results from different manufacturers or methods may not be comparable. Serial testing should be performed using the same methods and instrumentation. Current Interpretive Data was last revised on 2023. Blood 09/24/2024 11:0 0 AM CDT 09/24/2024 12:38 PM CDT Fidel Triana MD LAB BLOOD ORDER FRANCISCO Final Result JESU SPEARS [facility] [place] [address] * CBC with auto differential (09/24/2024 11:00 AM CDT) WBC 8.1 3.8 - 9.9 K/cumm Comment:Testing performed by : [facility], [address] [place] [phone] Hgb 13.3 11.9 - 15.5 g/dL JESU BISWAS Comment:Testing performed by : [facility], [address] [place] [phone] Hct 39.4 35.6 - 45.5 % JESU BISWAS Comment:Testing performed by : [facility], [address] [place] [address] Plt 318 150 - 400 K/cumm CERFIDELINA [facility] Comment:Testing performed by : [facility], [address] [place] [address] MPV 9.4 6.8 - 10.4 fL CERFIDELINA [facility] Comment:Testing performed by : [facility], [address] [place] [address] RBC 4.35 3.90 - 5.20 M/cumm CERFIDELINA [facility] Comment:Testing performed by : [facility], [address] [place], [place] [phone] MCV 90.7 81.3 - 96.4 fL CERFIDELINA [facility] Comment:Testing performed by : [facility], [address] [place] [address] MCH 30.6 27.1 - 33.3 pg CERFIDELINA [facility] Comment:Testing performed by : [facility], [address] [place] [address] MCHC 33.7 32.3 - 35.7 g/dL CERFIDELINA [facility] Comment:Testing performed by : [facility], [address] [place] [address] RDW CV 13.4 11.1 - 14.9 % [facility] Comment:Testing performed by : [facility], [address] [place] [address] NRBC abs 0.00 0.00 - 0.01 K/cumm [facility] Comment:Testing performed by : [facility], [address] [place] [address] Blood 09/24/2024 11:0 0 AM CDT 09/24/2024 11:15 AM CDT Fidel Triana MD LAB BLOOD ORDER FRANCISCO Final Result [facility] [place] [address] * (ABNORMAL) Protein electrophoresis with reflex, serum with interpretation (09/24/2024 11:00 AM CDT) [facility] Protein, sr 7.2 6.2 - 8.2 g/dL Albumin 4.5 3.2 - 5.0 g/dL [facility] Alpha-1 globulin 0.3 0.2 - 0.4 g/dL [facility] Alpha-2 globulin 0.9 0.5 - 1.0 g/dL [facility] Beta-1 globulin 0.5 0.3 - 0.6 g/dL [facility] Beta-2 globulin 0.3 0.2 - 0.6 g/dL [facility] Gamma globulin 0.7 0.5 - 1.7 g/dL [facility] Rstr Pk Gamma 0.3(H) 0.0 - 0.0 g/dL [facility] SPEP interp Please see comment [facility] Comment: Abnormal restricted peak in Gamma region Electrophoretic pattern appears similar to previous sample 06/25/2024 Reviewed and signed by Matt Smith MD, PhD 09/25/2024 Blood 09/24/2024 11:0 0 AM CDT 09/24/2024 12:38 PM CDT Fidel Triana MD LAB BLOOD ORDER FRANCISCO Final Result Performing Organization Address [facility] Co de Phone Number [facility] [place] [address] * Lactate dehydrogenase (LD) (09/24/2024 11:00 AM CDT) [facility] Lactate dehydrogenase (LDH) 225 100 - 250 Units/L Blood 09/24/2024 11:0 0 AM CDT 09/24/2024 11:22 AM CDT Fidel Triana MD LAB BLOOD ORDER FRANCISCO Final Result Performing Organization Address [facility] Co de Phone Number [facility] [place] [address] * (ABNORMAL) IgA (09/24/2024 11:00 AM CDT) Pathologist [facility] Immunoglobulin A <50(L) 70 - 400 mg/dL Blood 09/24/2024 11:0 0 AM CDT 09/24/2024 11:38 AM CDT Fidel Triana MD LAB BLOOD ORDER FRANCISCO Final Result Performing Organization Address [facility] Co de Phone Number [facility] [place] [address] * (ABNORMAL) IgM (09/24/2024 11:00 AM CDT) Pathologist [facility] Immunoglobulin M 38(L) 40 - 230 mg/dL Blood 09/24/2024 11:0 0 AM CDT 09/24/2024 11:38 AM CDT Fidel Triana MD LAB BLOOD ORDER FRANCISCO Final Result Performing Organization Address [facility] de Phone Number [facility] [place] [address] * IgG (09/24/2024 11:00 AM CDT) Pathologist [facility] Immunoglobulin G 783 700 - 1,600 mg/dL Blood 09/24/2024 11:0 0 AM CDT 09/24/2024 11:38 AM CDT Fidel Triana MD LAB BLOOD ORDER FRANCISCO Final Result Performing Organization Address [facility] de Phone Number [facility] [place] [address] * Comprehensive metabolic panel (09/24/2024 11:00 AM CDT) [facility] Sodium 143 135 - 145 mmol/L Potassium, pl 4.7 3.3 - 4.9 mmol/L [facility] Chloride 105 97 - 110 mmol/L [facility] CO2 29 22 - 32 mmol/L [facility] Anion gap 9 2 - 15 mmol/L [facility] BUN 12 6 - 25 mg/dL [facility] Creatinine 0.90 0.60 - 1.10 mg/dL [facility] Glucose 80 70 - 199 mg/dL [facility] Comment: Interpretive Data Fasting glucose >/= 126 mg/dl is diagnostic for diabetes. Fasting is defined as no caloric intake for at least 8 hours. Fasting glucose between 100 mg/dl to 125 mg/dl is diagnostic of prediabetes. In a patient with classic symptoms of hyperglycemia or hyperglycemic crisis, a random glucose >/= 200 mg/dl is diagnostic for diabetes. In the absence of unequivocal hyperglycemia, results should be confirmed by repeat testing. The classification and Diagnosis of Diabetes Diabetes Care 202; 46: S19-S40. Current interpretive data was last revised 2022. Calcium 10.0 8.5 - 10.3 mg/dL [facility] Bilirubin, total 0.2 0.1 - 1.2 mg/dL [facility] Protein, pl 7.6 6.5 - 8.5 g/dL [facility] Albumin 4.6 3.5 - 5.0 g/dL [facility] Alk phos 70 40 - 130 Units/L [facility] ALT 25 7 - 45 Units/L [facility] AST 26 10 - 45 Units/L [facility] Blood 09/24/2024 11:0 0 AM CDT 09/24/2024 11:22 AM CDT us Fidel Triana MD LAB BLOOD ORDER FRANCISCO Final Result [facility] Department [place] [address] * 48 HR Holter Monitor (09/10/2024 9:13 AM HOOP MAKER) Anatomical Region Laterality Modality Electrocardiogra phy 09/10/2024 9:21 AM HOOP MAKER Narrative 09/19/2024 1:25 PM CDT [facility] [place] [address] HOLTER MONITOR Patient Name: NITA HERNÁNDEZ E : 1965 (59y ) Gender: F Study Date: 09/10/2024 09:21:36 AM Ht(Inch): Wt(Lb): BSA: Tech: Location: [facility] Order Provider: MERY DUBOSE BMI: Ref Provider: MERY DUBOSE PROCEDURES: Holter Report: HOLTER MONITOR 48 HR [[id number]]. Enrollment Period: 09/10/2024 09:21 - 09/12/2024 09:21. Monitor Number: BodyGuardian Mini Holter - [id number]. Patient Instructions: Tech educated patient and applied the monitor and patient given monitor in office during appointment, patient understands directions and use of equipment. Location: [facility]. INDICATIONS: R00.2 Palpitations. FINDINGS: Holter Data: Min Rate: 57 BPM Min Rate Timestamp: 2024-09-12 05:31:03 Max Rate: 133 BPM Max Rate Timestamp: 2024-09-10 19:45:56 Mean Rate: 78 BPM Singlets (PACs): 34 events Couplets (PACs): 1 events Total (SVE): 36 events Singlets (PVCs): 2 events Couplets (PVCs): 0 events Runs (VT): 5 events Total (VE): 7 events Total beats: 754208 Protocol: Recording Duration (Actual): 416457.3 Total QRS: 714369 SUMMARY: *The predominant rhythm was Sinus. *The Maximum Heart Rate recorded was 133 bpm, 09/10 19:45:56, the Minimum Heart Rate recorded was 57 bpm, 09/12 05:31:03, and the Average Heart Rate was 78 bpm. *There were 7 VE beats with a burden of <1 %. There was 1 occurrence of Ventricular Tachycardia with the Fastest episode 129 bpm, 03/05 20:14:36, and the Longest episode 5 beats, 03/05 20:14:36. *There were 36 SVE beats with a burden of <1 %. *There were 2 Patient Triggers, 1 with *The predominant rhythm was Sinus. *The Maximum Heart Rate recorded was 133 bpm, 03/04 19:45:56, the Minimum Heart Rate recorded was 57 bpm, 03/06 05:31:03, and the Average Heart Rate was 78 bpm. *There were 7 VE beats with a burden of <1 %. There was 1 occurrence of Ventricular Tachycardia with the Fastest episode 129 bpm, 03/05 20:14:36, and the Longest episode 5 beats, 03/05 20:14:36. *There were 36 SVE beats with a burden of <1 %. *There were 2 Patient Triggers. one with PVC, and 1 unassociated w rhythm. CONCLUSIONS: 1. *The predominant rhythm was Sinus. *The Maximum Heart Rate recorded was 133 bpm, 03/04 19:45:56, the Minimum Heart Rate recorded was 57 bpm, 03/06 05:31:03, and the Average Heart Rate was 78 bpm. *There were 7 VE beats with a burden of <1 %. There was 1 occurrence of Ventricular Tachycardia with the Fastest episode 129 bpm, /05 20:14:36, and the Longest episode 5 beats, 03/05 20:14:36. *There were 36 SVE beats with a burden of <1 %. *There were 2 Patient Triggers, 1 with *The predominant rhythm was Sinus. *The Maximum Heart Rate recorded was 133 bpm, 03/04 19:45:56, the Minimum Heart Rate recorded was 57 bpm, 03/06 05:31:03, and the Average Heart Rate was 78 bpm. *There were 7 VE beats with a burden of <1 %. There was 1 occurrence of Ventricular Tachycardia with the Fastest episode 129 bpm, 03/05 20:14:36, and the Longest episode 5 beats, 03/05 20:14:36. *There were 36 SVE beats with a burden of <1 %. *There were 2 Patient Triggers. one with PVC, and 1 unassociated w rhythm. 2. I have reviewed the PDF and all the ECG strips. I agree with the interpretations as detailed in the report 3. The PDF can be found in the Epic Patient chart. Please go to the Cardiology tab, click on the holter or event exam. Scroll to bottom where the ORDER LEVEL Documents reside and click the blue link to the pdf. Electronically Signed By: Johnie Spann Jr., M.D. 09/19/2024 12:20:31 PM CDT Electronically Signed By: Johnie Spann Jr., M.D. 09/19/2024 12:20:31 PM CDT Procedure Note Johnie Spann MD PhD - 09/19/2024 [facility] [place] [address] HOLTER MONITOR Patient Name: NITA HERNÁNDEZ E : 1965 (59y ) Gender: F Study Date: 09/10/2024 09:21:36 AM Ht(Inch): Wt(Lb): BSA: Tech: Location: [facility] Order Provider: MERY DUBOSE BMI: Ref Provider: MERY DUBOSE PROCEDURES: Holter Report: HOLTER MONITOR 48 HR [[id number]]. Enrollment Period: 09/10/2024 09:21 - 09/12/2024 09:21. Monitor Number: BodyGuardian Mini Holter - [id number]. Patient Instructions: Tech educated patient and applied the monitor andpatient given monitor in office during appointment, patient understands directions anduse of equipment. Location: [facility]. INDICATIONS: R00.2 Palpitations. FINDINGS: Holter Data: Min Rate: 57 BPM Min Rate Timestamp: 2024-09-12 05:31:03 Max Rate: 133 BPM Max Rate Timestamp: 2024-09-10 19:45:56 Mean Rate: 78 BPM Singlets (PACs): 34 events Couplets (PACs): 1 events Total (SVE): 36 events Singlets (PVCs): 2 events Couplets (PVCs): 0 events Runs (VT): 5 events Total (VE): 7 events Total beats: 304415 Protocol: Recording Duration (Actual): 148595.3 Total QRS: 107334 SUMMARY: *The predominant rhythm was Sinus. *The Maximum Heart Rate recorded was 133 bpm, 09/10 19:45:56, the MinimumHeart Rate recorded was 57 bpm, 03/06 05:31:03, and the Average Heart Rate was 78bpm. *There were 7 VE beats with a burden of <1 %. There was 1 occurrence ofVentricular Tachycardia with the Fastest episode 129 bpm, 05 20:14:36, and theLongest episode 5 beats, 03/05 20:14:36. *There were 36 SVE beats with a burden of <1 %. *There were 2 Patient Triggers, 1 with *The predominant rhythm wasSinus. *The Maximum Heart Rate recorded was 133 bpm, 09/10 19:45:56, the MinimumHeart Rate recorded was 57 bpm, 03/06 05:31:03, and the Average Heart Rate was 78 bpm. *There were 7 VE beats with a burden of <1 %. There was 1 occurrence ofVentricular Tachycardia with the Fastest episode 129 bpm, 05 20:14:36, and the Longest episode 5beats, 09/11 20:14:36. *There were 36 SVE beats with a burden of <1 %. *There were 2 Patient Triggers. one with PVC, and 1 unassociated wrhythm. CONCLUSIONS: 1. *The predominant rhythm was Sinus. *The Maximum Heart Rate recorded was 133 bpm, 09/10 19:45:56, the MinimumHeart Rate recorded was 57 bpm, 03/06 05:31:03, and the Average Heart Rate was 78bpm. *There were 7 VE beats with a burden of <1 %. There was 1 occurrence ofVentricular Tachycardia with the Fastest episode 129 bpm, 05 20:14:36, and theLongest episode 5 beats, 03/05 20:14:36. *There were 36 SVE beats with a burden of <1 %. *There were 2 Patient Triggers, 1 with *The predominant rhythm wasSinus. *The Maximum Heart Rate recorded was 133 bpm, 09/10 19:45:56, the MinimumHeart Rate recorded was 57 bpm, 09/12 05:31:03, and the Average Heart Rate was 78 bpm. *There were 7 VE beats with a burden of <1 %. There was 1 occurrence ofVentricular Tachycardia with the Fastest episode 129 bpm, 09/11 20:14:36, and the Longest episode 5beats, 09/11 20:14:36. *There were 36 SVE beats with a burden of <1 %. *There were 2 Patient Triggers. one with PVC, and 1 unassociated wrhythm. 2. I have reviewed the PDF and all the ECG strips. I agree with theinterpretations as detailed in the report 3. The PDF can be found in the Epic Patient chart. Please go to theCardiology tab, click on the holter or event exam. Scroll to bottom where the ORDER LEVELDocuments reside and click the blue link to the pdf. Electronically Signed By: Johnie Spann Jr., M.D. 09/19/2024 12:20:31 PM CDT Electronically Signed By: Johnie Spann Jr., M.D. 09/19/2024 12:20:31 PM CDT Mery Dubose NP CV CARDIAC SERVICES PROCEDURE S Final Result * Vitamin D 25 hydroxy (09/09/2024 9:30 AM HOOP MAKER) Vitamin D 25-OH 38 30 - 80 ng/mL Blood 09/09/2024 9:30 AM HOOP MAKER 09/09/2024 10:22 AM HOOP MAKER Mery Dubose NP LAB BLOOD ORDERABLES Final Re sult CERNER BJ [facility] Department [place] [address] * Vitamin B12 (09/09/2024 9:30 AM HOOP MAKER) Vitamin B12 592 230 - 1,250 pg/mL Blood 09/09/2024 9:30 AM HOOP MAKER 09/09/2024 10:22 AM HOOP MAKER us Mery Dubose LOCOMOTIVE ENGINEER LAB BLOOD ORDERABLES Final Re sult JESU [facility] [place] [address] * POCT glucose (09/09/2024 8:14 AM HOOP MAKER) Glucose Blood, POC 88 mg/dL Blood 09/09/2024 8:14 AM HOOP MAKER us Mery Dubose LOCOMOTIVE ENGINEER POINT OF CARE TEST ORDERABLES Final Result * POCT lipid panel (09/09/2024 8:14 AM HOOP MAKER) Cholesterol, POC 167 mg/dL HDL, POC 72 mg/dL Triglycerides, POC 81 mg/dL LDL Cholesterol POC 79 mg/dL Chol/HDL Ratio, POC 2.3 Non-HDL Cholesterol, POC 95 mg/dL Capillary blood 09/09/2024 8 :14 AM HOOP MAKER us Mery Dubose LOCOMOTIVE ENGINEER POINT OF CARE TEST ORDERABLES Final Result * Screening Mammogram Bilateral W Samir (01/16/2024 8:16 AM CDT) Anatomical Region Laterality Modality Breast Bilateral Mammography Narrative 01/16/2024 10:51 AM CDT Mammogram Technique: Bilateral Digital Breast Tomosynthesis, Bilateral C-view 2D Screening mammogram. Views obtained: bilateral craniocaudal and bilateral mediolateral oblique. Computer Aided Detection was performed. Mammogram Findings: The present examination has been compared to prior imaging studies performed at [facility] on 12/07/2022, and at [facility] on 11/11/2020 and 10/12/2021. There are scattered areas of fibroglandular density. There is no suspicious abnormality in either breast. There are no significant changes from the prior study. Impression: There is no mammographic evidence of malignancy. Annual screening mammography is recommended. OVERALL FINAL ASSESSMENT: BI-RADS CATEGORY 1: Negative. Procedure Note Nate Knight MD - 01/16/2024 Mammogram Technique: Bilateral Digital Breast Tomosynthesis, Bilateral C-view 2D Screening mammogram. Views obtained: bilateral craniocaudal and bilateral mediolateral oblique. Computer Aided Detection was performed. Mammogram Findings: The present examination has been compared to prior imaging studies performed at [facility] on 12/07/2022, and at [facility] on 11/11/2020 and 10/12/2021. There are scattered areas of fibroglandular density. There is no suspicious abnormality in either breast. There are no significant changes from the prior study. Impression: There is no mammographic evidence of malignancy. Annual screening mammography is recommended. OVERALL FINAL ASSESSMENT: BI-RADS CATEGORY 1: Negative. us Self Screening Mammogram IMG MAMMO PROCEDURES Fi nal Result * Pap and HPV, reflex to HPV Genotypes (12/13/2023 4:11 PM CDT) Clinical indication Comment [facility] - 01 Comment: NEGATIVE FOR INTRAEPITHELIAL LESION OR MALIGNANCY. THIS SPECIMEN WAS RESCREENED PART OF OUR WET CHEMISTRY ANALYST PROGRAM. Specimen adequacy: Comment [facility] - 01 Comment: Satisfactory for evaluation. Endocervical and/or squamous metaplastic cells (endocervical component) are present. Clinician provided ICD10 Comment [facility] - 01 Comment:Z01.419 Performed by Comment [facility] - 01 Comment:Alexis Ozuna Cytot echnologist (ASCP) QC reviewed by Comment [facility] - 01 Comment:Ginna Barrios ytotechnologist (ASCP) . . [facility] - 01 Note: Comment [facility] - 01 Comment: The Pap smear is a screening test designed to aid in the detection of premalignant and malignant conditions of the uterine cervix. It is not a diagnostic procedure and should not be used as the sole means of detecting cervical cancer. Both false-positive and false-negative reports do occur. Test methodology Comment [facility] - 01 Comment: This liquid based ThinPrep(R) pap test was screened with the use of an image guided system. HPV Aptima Negative Negative [facility] 02 Comment: This nucleic acid amplification test detects fourteen high-risk HPV types (16,18,31,33,35,39,45,51,52,56,58,59,66,68) without differentiation. HPV Genotype Reflex Comment [facility] - 01 Comment:Criteria not met, HP V Genotype not performed. Thin prep 12/13/2023 4:11 PM CDT 12/13/2023 Narrative [facility] - 12/18/2023 3:08 PM CDT Performed at: [address] [id number] Investment Banking Analyst: Shania Ma MD, Phone: [phone] Performed at: [address] [id number] Investment Banking Analyst: Shania Ma MD, Phone: [phone] Specimen Comment: Source.............Cervix;Endocervix Specimen Comment: No. of containers..01 ThinPrep Vial Twan Guidry MD LAB CYTOLOGY ORDERABLES F inal Result [facility] - 01 LAB CRIS 02 * COLONOSCOPY REPORT (08/03/2015) Anatomical Region Laterality Modality Other Narrative 08/03/2015 Ordered by an unspecified provider. Historical Provider GI PROCEDURE ORDERABLES F inal Result * Serum Hepatitis panel (12/07/2012 12:45 PM CDT) HBV surface ag Negative NEG HISTO RICAL RESULTS HCV ab Negative NEG HISTORICAL RESULTS Comment: Interpretive Data If confirmation is required, call Laboratory Customer Service to request sample to be sent to [facility] for Hepatitis C Virus (HCV) RNA Detection and Quantitation by Real-Time Reverse Farm General Manager-PCR (RT-PCR). Current interpretive data was last revised on 2011 HBV core ab, IgM Negative NEG HIS TORICAL RESULTS Comment: Interpretive Data If test is reported as Equivocal, new sample should be drawn for testing. Current interpretive data was last revised on 2008. HAV ab, IgM Negative NEG HISTORIC AL RESULTS Comment: Interpretive Data If test is reported as Equivocal, new sample should be drawn in two weeks for testing. Current interpretive data was last revised on 2008. Serum 12/07/2012 12:4 5 PM CDT us Kemi Carbajal MD LAB BLOOD ORDERABLES Final R esult HISTORICAL RESULTS from Last 3 Months or Most Recently Relevant to Health Maintenance Insurance [facility] Member Subscriber Plan / Payer ( fective 2013-Present) Name:Nita Hernández Relation to Subscriber:Self Name:NITA HERNÁNDEZ Payer ID:[id number] (NAIC) Type:[employer] Address: [address] [employer] [facility] [place] [address] [facility] Advance Directives For more information, please contact: [phone] * Full Code (Latest Code Status on File) Date Activated Date Inactivated Comments 07/06/2018 12:22 PM 07/06/2018 4:52 PM Care Teams Cell Room Operator Relationship Specialty Start Date End Date Ze Alberts MD [address] [place] [address] PCP - General 09/23/20 Antoine Martinez MD [address] [address] [place] [address] Dredge Worker Pulmonary Disease 07/18/23 Fidel Triana MD [address] [place] [address] Medical Oncologist/Stroke Coordinator Medical Oncology 07/18/23 Josesito Santamaria MD [address] [place], [place] [id number] Consulting Physician 07/10/16
--- OUTSIDE RECORDS SUMMARY | 2024-10-13 06:44 | XMS_ITS | Clinical Summary ---
Author Organization [facility] Address 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
--- OUTSIDE RECORDS SUMMARY | 2024-10-13 06:44 | XMS_ITS | Encounter Summary ---
Author Organization [facility] Address [address] [place] [address] Phone Care Team Providers Care Estate And Trust Tax Principal Name Role Phone Ze Alberts MD Primary Care Provider [phone] Ze Alberts MD Unavailable [phone] Referral, Self Unavailable Unavailable Fidel Triana MD Unavailable Antoine Martinez MD Unavailable [phone] Fidel Triana MD Unavailable Encounter Details Date Type Department Care Team (Late st Contact Info) Description 03/11/[address] [facility] Bone Marrow Transplant [address] [facility] 7th Floor, [place] [address] Bárbara Fowler V. Social History Tobacco Use Types Packs/Day Years Used Date Smoking Tobacco: Never Smokeless Tobacco: Never Alcohol Use Standard Drinks/Week Comments Yes 0 (1 standard drink = 0.6 oz pur e alcohol) very seldomly AUDIT-C Answer Date Recorded Q1: How often do you have a drink containing alc ohol? 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 Author CCM Chronic Pain Care Plan Chronic Care Management On track(2023 1:58 PM HEAD LOFT WORKER) No Delisa Sutherland, RN Note: Problem: Chronic [...] documented as of this encounter Care Teams Estate And Trust Tax Principal Relationship Specialty Start Date End Date Ze Alberts MD [address] [address] PCP - General 09/23/20 Ze Alberts MD [address] [address] Internal Medicine 09/23/20 07/17/23 Referral, Self Referring Physician 12/07/18 07/17/23 Fidel Triana MD Medical Oncologist/Caustic Plant Worker Medical Oncology 09/04/20 07/17/23 Antoine Martinez MD Stone Polisher Hand Pulmonary Disease 07/18/23 Fidel Triana MD Medical Oncologist/Caustic Plant Worker Medical Oncology 07/18/23 Josesito Santamaria MD [facility] [address] [place] [address] Consulting Physician 07/10/16 documented as of this encounter
--- OUTSIDE RECORDS SUMMARY | 2024-10-13 06:44 | XMS_ITS | Encounter Summary ---
Author Organization [facility] Address [address] [place] [address] Phone Care Team Providers Care Palletizer Operator Name Role Phone Fern, Valery Mayra Primary Care Provider Bertha Hutton MD Primary Care Provider Ze Alberts MD Primary Care Provider [phone] Bertha Hutton MD Primary Care Provider Ze Alberts MD Primary Care Provider Ze Alberts MD Primary Care Provider [phone] Ze Alberts MD Unavailable [phone] Referral, Self Unavailable Unavailable Fidel Triana MD Unavailable Antoine Martinez MD Unavailable [phone] Fidel Triana MD Unavailable Encounter Details Date Type Department Care Team (Latest Contact Info) Description 03/16/2017 Orders Only [facility] CONVERSION Scanning, Provider Social History Tobacco Use Types Packs/Day Years Used Date Smoking Tobacco: Never Comments Unknown Sex and Gender Information Value Date Recorded Sex Assigned at Not on file Legal Sex Female 10:56 AM SENIOR LOSS CONTROL SPECIALIST Gender Identity Choose not to disclose 2:17 PM SENIOR LOSS CONTROL SPECIALIST Sexual Orientation Choose not to disclose 2020 2:17 PM SENIOR LOSS CONTROL SPECIALIST documented as of this encounter Plan of Treatment Not on file documented as of this encounter Procedures Procedure Name Priority Date/Time Associated Diagnosis Comments VASCULAR LABORATORY REPORT 03/16/2017 8:53 AM CDT PULMONARY FUNCTION TEST (PFT) 03/15/2017 11:01 AM CDT documented in this encounter Results * VASCULAR LABORATORY REPORT (03/16/2017 8:53 AM CDT) Anatomical Region Laterality Modality Ultrasound us Provider Scanning CV VASCULAR PROCEDURES Final R esult * PULMONARY FUNCTION TEST (PFT) (03/15/2017 11:01 AM CDT) Anatomical Region Laterality Modality PFT us Provider Scanning PFT ORDERABLES Final Result documented in this encounter Visit Diagnoses Not on filedocumented in this encounter Additional Health Concerns Infection Onset Date Last Indicated Resolved Time Rhino/Enterovirus 09/24/2024 09/24/2024 10/01/2024 3:07 AM CDT documented as of this encounter Care Teams Palletizer Operator Relationship Specialty Start Date End Date Valery Shirley DO PCP - General 08/29/16 08/25/19 Bertha Hutton MD [address] [place] [address] PCP - General Internal Medicine 08/26/19 12/15/19 [place] [address] [place] [address] PCP - General Internal Medicine 12/16/19 12/17/19 Bertha Hutton MD [address] [place] [address] PCP - General Internal Medicine 12/18/19 02/12/20 Ze Alberts MD [address] [facility] [address] [place] [address] PCP - General Internal Medicine 03/11/20 09/22/20 Ze Alberts MD [address] [facility] [address] [place] [address] PCP - General 09/23/20 Ze Alberts MD [address] [facility] [address] [place] [address] Internal Medicine 09/23/20 07/17/23 Referral, Self Referring Physician 12/07/18 07/17/23 Fidel Triana MD Medical Oncologist/Jowl Trimmer Medical Oncology 09/04/20 07/17/23 Antoine Martinez MD Software Engineer Developer Pulmonary Disease 07/18/23 Fidel Triana MD Medical Oncologist/Jowl Trimmer Medical Oncology 07/18/23 Josesito Santamaria MD [address] [place] [address] Consulting Physician 07/10/16 documented as of this encounter
--- OUTSIDE RECORDS SUMMARY | 2024-10-13 06:44 | XMS_ITS | Encounter Summary ---
Author Organization [facility] Address [address] [place] [address] Phone Care Team Providers Care Lining Ironer Name Role Phone Ze Alberts MD Primary Care Provider [phone] Antoine Martinez MD Unavailable [phone] Fidel Triana MD Unavailable Encounter Details Date Type Department Care Team (Late st Contact Info) Description 09/20/2023 Telephone [facility] Oncology [address] [facility] Advanced Medicine 7th [place] [address] [place] [address] Naye Duarte Social History Tobacco Use Types Packs/Day Years [...] often do you have a drink containing alcohol? Never 06/12/2023 Q2: How many drinks containi ng alcohol do you have on a typical day when you are drinking? Patient does not drink 3 Q3: How often do you have si x or more drinks on one occasion? 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 Author CCM Chronic Pain Care Plan Chronic Care Management On track(2023 1:58 PM CONTACT LENS MANUFACTURER) No Delisa Sutherland, RN Note: Problem: Chronic Pain Goals: 1. Minimize further functional decline 2. Maximize quality of life 3. Control pain Strategies: - Activity/exercise program recommendation - Conservative stepwise pain medicine strategy with multi-disciplinary approach - Recommend healthy lifestyle strategies and compensatory methods as needed documented as of this encounter Results * Cholesterol, total (09/25/2023 8:58 AM CDT) Cholesterol 180 30 - 199 mg/dL Comment: Interpretive Data Ages < or = 19 years Acceptable: <170 mg/dL Borderline high: 170-199 mg/dL High: >or= 200 mg/dL Ages > or = 20 years Desirable: <200 mg/dL Borderline high: 200-239 mg/dL High: >or= 240 mg/dL Literature References: 1. Expert Panel on Integrated Guidelines for Cardiovascular Health and Risk Reduction in Children and Adolescents. Pediatrics 2011;128:S213 2. NCEP Expert Panel. Circulation 2004;110:227 Current Interpretive Data was last revised on 2018. Blood 09/25/2023 8:58 AM CDT 09/25/2023 9:35 AM CDT Fidel Triana MD LAB BLOOD ORDER FRANCISCO Final Result [facility] Department [place] [address] documented in this encounter Visit Diagnoses Diagnosis Indolent multiple myeloma (HCC)- Primary Multiple myeloma, without mention of having achieved remission documented in this encounter Additional Health Concerns Infection Onset Date Last Indicated Resolved Time Rhino/Enterovirus 09/24/2024 09/24/2024 10/01/2024 3:07 AM CDT documented as of this encounter Care Teams Lining Ironer Relationship Specialty Start Date End Date Ze Alberts MD [address] [place] [address] PCP - General 09/23/20 Antoine Martinez MD [address] [place] [address] Refinery Operator Crude Unit Pulmonary Disease 07/18/23 Fidel Triana MD [address] [facility] [place] [address] [place] [address] Medical Oncologist/Senior Java Web Developer Medical Oncology 07/18/23 Josesito Santamaria MD [address] [place] [address] Consulting Physician 07/10/16 documented as of this encounter
--- OUTSIDE RECORDS SUMMARY | 2024-10-13 06:44 | XMS_ITS | Encounter Summary ---
Author Organization [facility] Healthcare Address [address] [place] [address] Care Team Providers Care Branch Lead Name Role Phone Valery Shirley DO Primary Care Provider Bertha Hutton MD Primary Care Provider Ze Alberts MD Primary Care Provider [phone] Bertha Hutton MD Primary Care Provider Ze Alberts MD Primary Care Provider Ze Alberts MD Primary Care Provider Ze Alberts MD Unavailable Referral, Self Unavailable Unavailable Fidel Triana MD Unavailable Antoine Martinez MD Unavailable [phone] Fidel Triana MD Unavailable Encounter Details Date Type Department Care Team (Late st Contact Info) Description 01/29/2018 Community Orders [facility] EpicCare Link Valery Shirley DO [address] [place] [address] Social History Tobacco Use Types Packs/Day Years Used Date Smoking Tobacco: Never Comments Unknown Sex and Gender Information Value Date Recorded Sex Assigned at Not on file Legal Sex Female 10:56 AM DIRECTOR OF USER EXPERIENCE Gender Identity Choose not to disclose 1 2:17 PM DIRECTOR OF USER EXPERIENCE Sexual Orientation Choose not to disclose 2020 2:17 PM DIRECTOR OF USER EXPERIENCE documented as of this encounter Plan of Treatment Not on file documented as of this encounter Visit Diagnoses Not on filedocumented in this encounter Additional Health Concerns Infection Onset Date Last Indicated Resolved Time Rhino/Enterovirus 09/24/2024 09/24/2024 10/01/2024 3:07 AM CDT documented as of this encounter Care Teams Branch Lead Relationship Specialty Start Date End Date Valery ShirleyeDO PCP - General 08/29/16 08/25/19 Bertha Hutton MD [address] [place] [address] PCP - General Internal Medicine 08/26/19 12/15/19 Ze Alberts MD [address] [employer] [address] [address] PCP - General Internal Medicine 12/16/19 12/17/19 Bertha Hutton MD [address] [place] [address] PCP - General Internal Medicine 12/18/19 02/12/20 Ze Alberts MD [address] [employer] [address] [address] PCP - General Internal Medicine 03/11/20 09/22/20 Ze Alberts MD [address] [employer] [address] [address] PCP - General 09/23/20 Ze Alberts MD [address] [address] [address] Internal Medicine 09/23/20 07/17/23 Referral, Self Referring Physician 12/07/18 07/17/23 Fidel Triana MD Medical Oncologist/Sales Operations Analyst Medical Oncology 09/04/20 07/17/23 Antoine Martinez MD Waste Disposal Attendant Pulmonary Disease 07/18/23 Fidel Triana MD Medical Oncologist/Sales Operations Analyst Medical Oncology 07/18/23 Josesito Santamaria MD [address] [place] [address] Consulting Physician 07/10/16 documented as of this encounter
--- OUTSIDE RECORDS SUMMARY | 2024-10-13 06:44 | XMS_ITS | Encounter Summary ---
Author Organization [facility] Healthcare Address [address] [place] [address] Care Team Providers Care Kitchen Cleaner Name Role Phone Valery [address] DO Primary Care Provider Bertha Hutton MD Primary Care Provider Ze Alberts MD Primary Care Provider Bertha Hutton MD Primary Care Provider Ze Alberts MD Primary Care Provider [phone] Ze Alberts MD Primary Care Provider [phone] Ze Alberts MD Unavailable Referral, Self Unavailable Unavailable Fidel Triana MD Unavailable Antoine Martinez MD Unavailable [phone] Fidel Triana MD Unavailable Encounter Details Date Type Department Care Team (Late st Contact Info) Description 05/25/2018 Community Orders [facility] EpicCare Link Valery Shirley DO [address] [place], [place] [id number] Chronic colitis (Primary Dx) Social History Tobacco Use Types Packs/Day Years Used Date Smoking Tobacco: Never Comments Unknown Sex and Gender Information Value Date Recorded Sex Assigned at Not on file Legal Sex Female 10:56 AM MATE FISHING VESSEL Gender Identity Choose not to disclose 2:17 PM MATE FISHING VESSEL Sexual Orientation Choose not to disclose 2020 2:17 PM MATE FISHING VESSEL documented as of this encounter Plan of Treatment Not on file documented as of this encounter Visit Diagnoses Diagnosis Chronic colitis- Primary Other and unspecified noninfectious gastroenteritis and colitis documented in this encounter Additional Health Concerns Infection Onset Date Last Indicated Resolved Time Rhino/Enterovirus 09/24/2024 09/24/2024 10/01/2024 3:07 AM CDT documented as of this encounter Care Teams Kitchen Cleaner Relationship Specialty Start Date End Date Fern Valery NunezDO PCP - General 08/29/16 08/25/19 Bertha Hutton MD [address] [place] [address] PCP - General Internal Medicine 08/26/19 12/15/19 Ze Alberts MD [address] [place] [address] PCP - General Internal Medicine 12/16/19 12/17/19 Bertha Hutton MD [address] [place] [address] PCP - General Internal Medicine 12/18/19 02/12/20 Ze Alberts MD [address] [place] [address] PCP - General Internal Medicine 03/11/20 09/22/20 Ze Alberts MD [address] [place] [address] PCP - General 09/23/20 Ze Alberts MD [address] [facility] [address] [place] [address] Internal Medicine 09/23/20 07/17/23 Referral, Self Referring Physician 12/07/18 07/17/23 Fidel Triana MD Medical Oncologist/Mold Shaker Medical Oncology 09/04/20 07/17/23 Antoine Martinez MD Informatics Manager Pulmonary Disease 07/18/23 Fidel Triana MD Medical Oncologist/Mold Shaker Medical Oncology 07/18/23 Josesito Santamaria MD [address] [place] [address] Consulting Physician 07/10/16 documented as of this encounter
--- OUTSIDE RECORDS SUMMARY | 2024-10-13 06:44 | XMS_ITS | Referral Summary ---
Author Organization [facility] Address [address] [place] [address] Care Team Providers Care Clutch Operator Name Role Phone Ze Alberts MD Primary Care Provider [phone] Antoine Martinez MD Unavailable [phone] Fidel Triana MD Unavailable Encounters Date Type Department Care Team Description 09/25/2024 Results Follow-Up [facility] Bone Marrow Transplant [address] [place] [phone] Areli Rocha NP 09/24/2024 1:15 PM CDT - 09/24/2024 11:59 PM CDT Hospital Encounter [address] [address] Discharge Disposition: Discharge to home or self care 09/24/2024 1:15 PM CDT Lab [facility] - Lab Collection [address] [place] [phone] Smoldering multiple myeloma 09/24/2024 10:45 AM CDT Lab [facility] - Lab Collection [address] [place] [phone] Smoldering multiple myeloma 09/24/2024 11:00 AM CDT Lab [facility] Oncology Lab [address] [place] [phone] Smoldering multiple myeloma 09/24/2024 11:45 AM CDT Office Visit [facility] Bone Marrow Transplant [address] [place] [phone] Areli Rocha NP Smoldering multiple myeloma (Primary Dx) 09/20/2024 Results Follow-Up [facility] [address] [place] [phone] Mery Dubose NP Palpitations (Primary Dx) 09/10/2024 9:11 AM JEWELRY MAKER - 09/10/2024 11:59 PM JEWELRY MAKER Hospital Encounter [facility] Cardiac Diagnostic Lab [address] [place] [address] 8[address] [place] [phone] Palpitations Discharge Disposition: Discharge to home or self care 09/09/2024 Results Follow-Up [facility] [address] [place] [phone] Mery Dubose NP 09/09/2024 10:00 AM JEWELRY MAKER Lab [place] [facility] [address] [place] [phone] Vitamin D deficiency; Vitamin B12 deficiency 09/09/2024 8:15 AM JEWELRY MAKER Office Visit [facility] [address] [place] [phone] Mery Dubose NP Hypercholesteremia (Primary Dx); Palpitations; Vitamin B12 deficiency; Vitamin D deficiency 09/05/2024 Telephone [facility] [address] [place] [phone] Ze Alberts MD 08/30/2024 10:00 AM JEWELRY MAKER Office Visit [facility] [address] [facility] [address] [place] [address] Arlen Angelo, DIONISIO History of repair of retinal tear by laser photocoagulation (Primary Dx); Exophoria; Dry eye syndrome of both eyes; Myopia of both eyes with astigmatism and presbyopia 08/14/2024 11:45 AM JEWELRY MAKER Office Visit [facility] [address] [place] [address] Mery Dubose NP Hypercholesteremia (Primary Dx); Vitamin D deficiency; Vitamin B12 deficiency; Hair loss from Last 3 Months Allergies Active Allergy Reactions Criticality Noted Date [...] mg tablet Take 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 Active cholecalciferol, vitamin D3, 1,000 unit tablet,chewable Take 1 tablet/chew tab by mouth daily Active vitamins A,C,U-lnzb-tnouxi (ICAPS) 4,296 mcg-226 mg-90 mg capsule Take 1 capsule by mouth daily Active thiamine (VITAMIN B-1) 50 mg tablet Take 1 tablet (50 mg total) by mouth daily Active zcnh-EI-T66-C-doc usat sodium 13-4-97-120-50 gl-iq-rvd-mg-mg tablet Take 25 mcg by mouth daily [...] 03/21/2024 Assessment & Plan (08/30/2024 1:17 PM JEWELRY MAKER): No improvement (NI) with prism, monitor [...] 11/10/2023 Assessment & Plan (08/30/2024 1:18 PM JEWELRY MAKER): Rec pfats bid+ Assessment & Plan [...] rx Assessment & Plan (06/22/2023 1:39 PM JEWELRY MAKER): Update glasses Rx, rec decreasing near add -release Rx for D/N and Imed/N Rx Chronic headache 06/16/2023 Presbyopia of both eyes 08/12/2022 Assessment & Plan (08/12/2022 11:34 AM JEWELRY MAKER): Updated SRx given today. Pt would like to consider refractive surgery - we discussed options today (lasik, refractive lensectomy). Discussed that I would likely not recommend monovision following her concussion unless she trials this first. Pt will call for lasik eval. Post concussion syndrome 01/31/2022 Assessment & Plan (06/26/2023 10:10 AM JEWELRY MAKER): Seems to be recovering Encouraged continued [...] 10/29/2021 Assessment & Plan (08/30/2024 1:16 PM JEWELRY MAKER): Release updated glasses Rx Assessment & Plan (10/29/2021 1:07 PM CDT): Updated SRx given today - recommended SV dist for now as pt currently in rehabilitation for TBI. Retinal scar of right eye 09/10/2021 Assessment & Plan (08/12/2022 11:30 AM JEWELRY MAKER): S/p laser retinopexy 09/2021. Stable today, [...] barricade -- no new RT/RH/RD OU on PROGRAM CLERK -- doing well -- CTM for now, repeat DFE in 3 months Assessment & Plan (12/01/2021 3:16 PM CDT): S/pretinopexy September 2021. Stable today, well-surrounded with laser barricade -- no new RT/RH/RD OU on PROGRAM CLERK -- doing well -- CTM for now, [...] discussed Assessment & Plan (09/10/2021 3:37 PM JEWELRY MAKER): Symptomatic retinal hole OS. Pt s/p [...] 08/29/2016 Assessment & Plan (08/12/2022 11:31 AM JEWELRY MAKER): Pt with ocular pain/photophobia/difficulty focusing following [...] in rehab 3 days per week in [place], reports symptoms are improving. Trialed FL-41 fitover with minimal improvement. HVF today full OU. Ocular health exam otherwise normal today. Pt to return to clinic with any new or worsening vision changes, ocular pain, flashes/floaters/curtain in vision. Assessment & Plan (09/10/2021 3:40 PM JEWELRY MAKER): Pt with ocular pain/photophobia/difficulty focusing following [...] 06/26/2023 Assessment & Plan (06/12/2023 3:41 PM JEWELRY MAKER): Tdap today, otherwise IUTD MMG 11/2023 [...] a bit of NSAID's prior to onset Howell diet x 3-5 days, advance slowly If not improving to call for colo/EGD Concussion without loss of consciousness 07/21/2021 12/02/2022 Assessment & Plan (08/04/2021 9:11 AM JEWELRY MAKER): Has had some mild improvement but continues to have easy fatigability headache vision changes in other signs of postconcussion syndrome. Overall does feel somewhat better will refer to concussion rehab and continue present Rx Assessment & Plan (07/21/2021 11:11 AM JEWELRY MAKER): Neurologic exam today is normal. Patient has Syme's and symptoms of concussion. Plan at this point is to check CT head and C-spine. Usual concussion precautions given. Change of skin color 03/22/2021 023 Assessment & Plan (03/22/2021 11:20 AM CDT): Referral to Derm Possible tinea versicolor Impacted cerumen of left ear 12/07/2018 03/22/2021 Colitis 04/03/2018 12/02/2022 Migraine with aura 11/07/2017 2 Immunizations Immunization Administration Dates Next Due DTaP 07/10/2006 IPV 11/24/2015 Influenza, Quadrivalent, Shawna l Culture-based MDCK, Preservative Free, Antibiotic Free, Intramuscular 04/09/2023 Influenza, Quadrivalent, Split, Intramuscular Influenza, Quadrivalent, Spl it, Preservative Free, Intramuscular 04/22/2020 Influenza, Split 04/11/2013 Influenza, Unspecified 04/09/2016,07/10/2007 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 PPD TEST 07/10/2007 Pfizer SARS-CoV-2 Monovalent Vaccination (12+ Yrs) SCHAEFFER-READY TO USE 03/04/2022,09/07/2021 Pfizer SARS-CoV-2 Monovalent Vaccination (12+ Yrs) PURPLE 08/28/2020,08/04/2020 Pneumococcal Conjugate PCV 13 08/07/2018 Pneumococcal Conjugate Pcv20 01/16/2024 Tdap 06/12/2023 Typhoid Inactivated 04/02/2019,11/18/2015 ZOSTER Recombinant 08/07/2018,02/06/2018 Social History Tobacco Use Types Packs/Day Years [...] on file Legal Sex Female 10:56 AM JEWELRY MAKER Gender Identity Choose not to disclose 2:17 PM JEWELRY MAKER Sexual Orientation Choose not to disclose 2020 2:17 PM JEWELRY MAKER 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 Author CCM Chronic Pain Care Plan Chronic Care Management On track(2023 1:58 PM JEWELRY MAKER) Delisa Hickey, RN Note: Problem: Chronic [...] MONITOR 48 HR Routine 09/10/2024 9:13 AM JEWELRY MAKER Palpitations VITAMIN B12 Routine 09/09/2024 9:30 AM JEWELRY MAKER Vitamin B12 deficiency VITAMIN D 25 HYDROXY Routine 09/09/2024 9:30 AM JEWELRY MAKER Vitamin D deficiency POCT GLUCOSE 67540 Routine 09/09/2024 8: 14 AM JEWELRY MAKER Hypercholesteremia POCT LIPID PANEL Routine 09/09/2024 8:14 AM JEWELRY MAKER Hypercholesteremia SCREENING MAMMOGRAM BILATERAL W SAMIR [...] Influenza B RNA Not Detected Not Detected [facility] RSV RNA Not Detected Not Detected [facility] COVID-19 RNA Not Detected Not Detected [facility] Coronavirus 229E RNA Not Detected Not Detected [facility] Coronavirus HKU1 RNA Not Detected Not Detected [facility] Coronavirus NL63 RNA Not Detected Not Detected [facility] Coronavirus OC43 RNA Not Detected Not Detected [facility] Adenovirus DNA Not Detected Not Detected [facility] Metapneumovirus RNA Not Detected Not Detected [facility] Rhinovirus/Enterov irus RNA Detected(A) Not Detected [facility] Parainfluenza 1 RNA Not Detected Not Detected [facility] Parainfluenza 2 RNA Not Detected Not Detected [facility] Parainfluenza 3 RNA Not Detected Not Detected [facility] Parainfluenza 4 RNA Not Detected Not Detected [facility] B. pertussis DNA Not Detected Not Detected [facility] B. parapertussis DNA Not Detected Not Detected [facility] C. pneumoniae DNA Not Detected Not Detected [facility] M. pneumoniae DNA Not Detected Not Detected [facility] Nasopharyngeal 09/24/2024 1: 16 PM CDT 09/24/2024 1:39 PM CDT Narrative [facility] - 09/24/2024 2:38 PM CDT Is the Patient experiencing symptoms consistent with COVID?->No Surveillance testing for transplant patient?->No Interpretive Data The Track the Bet FilmArray Respiratory Panel (RP2.1) assay is a [...] patient with possible respiratory tract infection. The FilmArray RP2.1 assay has FDA clearance for testing of ARCHITECTURAL MODELER swabs. The performance of additional specimen types has been assessed by the performing laboratory. The performance characteristics of this assay have been determined by [facility]. Current interpretive data was last revised on 22. Areli Rocha ARCHITECTURAL MODELER LAB MICROBIOLOGY - GENERA L ORDERABLES Final Result JESU SPEARS One [facility] [place] [address] * Throat culture Throat (09/24/2024 1:15 PM CDT) Report Final Report: No growth of pathogens. Throat 09/24/2024 1:15 PM CDT 09/24/2024 4:40 PM CDT Baldo NAILS [facility] - 09/25/2024 12:47 PM CDT Testing performed by [facility] ([phone]). Areli Rocha NP LAB MICROBIOLOGY - GENERA L ORDERABLES Final Result JESU [facility] [place] [address] * eGFR (09/24/2024 11:00 AM CDT) eGFR [...] of Race in Diagnosing Kidney Disease, JASN 2020). The CKD-EPI equation should not be used for patients with unstable renal function and has not been validated in children and those over 70. Current interpretive data was last reviewed 2021. Blood 09/24/2024 11:0 0 AM CDT 09/24/2024 11:22 AM CDT Fidel Triana MD LAB BLOOD ORDER FRANCISCO Final Result JESU SPEARS [place] [facility] Department [place] [address] * Differential, auto (09/24/2024 11:00 AM CDT) Neutrophil abs 5.4 1.5 - 6.5 K/cumm Comment:Testing performed by : [facility], [address] [place] [phone] Lymphocyte abs 2.1 0.8 - 3.3 K/cumm [facility] Comment:Testing performed by : [facility], [address] [place] [phone] Monocyte abs 0.5 0.2 - 0.8 K/cumm [facility] Comment:Testing performed by : [facility], [address] [place] [phone] Eosinophil abs 0.1 0.0 - 0.5 K/cumm [facility] Comment:Testing performed by : [facility], [address] [place] [phone] Basophil abs 0.0 0.0 - 0.1 K/cumm [facility] Comment:Testing performed by : [facility], [address] [place], [place] [phone] Neutrophil pct 66.4 % [facility] Comment: Interpretive Data Percent cell count reference ranges are not reported, since discordance with absolute values may lead to misinterpretation of CBC data. Current Interpretive Data was last revised on 2017. Testing performed by: [facility], [address] [place] [phone] Lymphocyte pct 26.0 % [facility] Comment: Interpretive Data Percent cell count reference ranges are not reported, since discordance with absolute values may lead to misinterpretation of CBC data. Current Interpretive Data was last revised on 2017. Testing performed by: [facility], [address] [place] [phone] Monocyte pct 6.5 % [facility] Comment: Interpretive Data Percent cell count reference ranges are not reported, since discordance with absolute values may lead to misinterpretation of CBC data. Current Interpretive Data was last revised on 2017. Testing performed by: [facility], [address] [place] [phone] Eosinophil pct 0.9 % [facility] Comment: Interpretive Data Percent cell count reference ranges are not reported, since discordance with absolute values may lead to misinterpretation of CBC data. Current Interpretive Data was last revised on 2017. Testing performed by: [facility], [address] [place] [address], [place] [phone] Basophil pct 0.2 % JESU [facility] Comment: Interpretive Data Percent cell count reference ranges are not reported, since discordance with absolute values may lead to misinterpretation of CBC data. Current Interpretive Data was last revised on 2017. Testing performed by: [facility], [facility] [place] [phone] Blood 09/24/2024 11:0 0 AM CDT 09/24/2024 11:15 AM CDT Fidel Triana MD LAB BLOOD ORDER FRANCISCO Final Result JESU SPEARS One [facility] Department [place] [address] * (ABNORMAL) Immunoglobulin free light chains (09/24/2024 11:00 AM CDT) [place]/Lambda ratio [facility] 119.26(H) 0.26 - 1.65 Comment: Interpretive Data The Binding Site FreeLite assay procedure was used. Results from different manufacturers or methods may not be comparable. Serial testing should be performed using the same methods and instrumentation. Current Interpretive Data was last revised on 2023. [place] free light chain [facility] 67.98(H) 0.33 - 1.94 mg/dL JESU [facility] Comment: Interpretive Data The Binding Site FreeLite assay procedure was used. Results from different manufacturers or methods may not be comparable. Serial testing should be performed using the same methods and instrumentation. Current Interpretive Data was last revised on 2023. Lambda free light chain [facility] 0.57 0.57 - 2.63 mg/dL JESU [facility] Comment: Interpretive Data The Binding Site FreeLite assay procedure was used. Results from different manufacturers or methods may not be comparable. Serial testing should be performed using the same methods and instrumentation. Current Interpretive Data was last revised on 2023. Blood 09/24/2024 11:0 0 AM CDT 09/24/2024 12:38 PM CDT us Fidel Triana MD LAB BLOOD ORDER FRANCISCO Final Result JESU SPEARS One [facility] Department [place] [address] * CBC with auto differential (09/24/2024 11:00 AM CDT) WBC 8.1 3.8 - 9.9 K/cumm Comment:Testing performed by : [facility], [address] [place] [address] Hgb 13.3 11.9 - 15.5 g/dL JESU SPEARS Comment:Testing performed by : [facility], [address] [place] [address] Hct 39.4 35.6 - 45.5 % CERFIDELINA SPEARS Comment:Testing performed by : [facility], [address] [place] [address] Plt 318 150 - 400 K/cumm CERFIDELINA SPEARS Comment:Testing performed by : [facility], [address] [place] [address] MPV 9.4 6.8 - 10.4 fL CERFIDELINA BJ Comment:Testing performed by : [facility], [address] [place] [address] RBC 4.35 3.90 - 5.20 M/cumm JESU BJ Comment:Testing performed by : [facility], [address] [place] [address] MCV 90.7 81.3 - 96.4 fL CERFIDELINA BJ Comment:Testing performed by : [facility], [address] [place] [address] MCH 30.6 27.1 - 33.3 pg CERFIDELINA BJ Comment:Testing performed by : [facility], [address] [place] [address] MCHC 33.7 32.3 - 35.7 g/dL CERFIDELINA BJ Comment:Testing performed by : [facility], [address] [place] [phone] RDW CV 13.4 11.1 - 14.9 % JESU [facility] Comment:Testing performed by : [facility], [address] [place] [phone] NRBC abs 0.00 0.00 - 0.01 K/cumm JESU [facility] Comment:Testing performed by : [facility], [address] [place] [phone] Blood 09/24/2024 11:0 0 AM CDT 09/24/2024 11:15 AM CDT Fidel Triana MD LAB BLOOD ORDER FRANCISCO Final Result [facility] One [facility] Department [place] [address] * (ABNORMAL) Protein electrophoresis with reflex, serum with interpretation (09/24/2024 11:00 AM CDT) Protein, sr 7.2 6.2 - 8.2 g/dL Albumin 4.5 3.2 - 5.0 g/dL [facility] Alpha-1 globulin 0.3 0.2 - 0.4 g/dL [facility] Alpha-2 globulin 0.9 0.5 - 1.0 g/dL [facility] Beta-1 globulin 0.5 0.3 - 0.6 g/dL [facility] Beta-2 globulin 0.3 0.2 - 0.6 g/dL [facility] Gamma globulin 0.7 0.5 - 1.7 g/dL [facility] Rstr Pk Gamma 0.3(H) 0.0 - 0.0 g/dL [facility] SPEP interp Please see comment JESU SPEARS Comment: Abnormal restricted peak in Gamma region Electrophoretic pattern appears similar to previous sample 06/25/2024 Reviewed and signed by Matt Simth MD, PhD 09/25/2024 Blood 09/24/2024 11:0 0 AM CDT 09/24/2024 12:38 PM CDT Fidel Triana MD LAB BLOOD ORDER FRANCISCO Final Result Performing Organization Address [facility] de Phone Number [facility] [place] [address] * Lactate dehydrogenase (LD) (09/24/2024 11:00 AM CDT) Lactate dehydrogenase (LDH) 225 100 - 250 Units/L Blood 09/24/2024 11:0 0 AM CDT 09/24/2024 11:22 AM CDT Fidel Triana MD LAB BLOOD ORDER FRANCISCO Final Result Performing Organization Address [facility] de Phone Number [facility] [place] [address] * (ABNORMAL) IgA (09/24/2024 11:00 AM CDT) Immunoglobulin A <50(L) 70 - 400 mg/dL Blood 09/24/2024 11:0 0 AM CDT 09/24/2024 11:38 AM CDT Fidel Triana MD LAB BLOOD ORDER FRANCISCO Final Result Performing Organization Address [facility] de Phone Number [facility] [place] [address] * (ABNORMAL) IgM (09/24/2024 11:00 AM CDT) Immunoglobulin M 38(L) 40 - 230 mg/dL Blood 09/24/2024 11:0 0 AM CDT 09/24/2024 11:38 AM CDT Fidel Triana MD LAB BLOOD ORDER FRANCISCO Final Result [facility] One [facility] Department [place] [address] * IgG (09/24/2024 11:00 AM CDT) Pathologist [facility] Immunoglobulin G 783 700 - 1,600 mg/dL Blood 09/24/2024 11:0 0 AM CDT 09/24/2024 11:38 AM CDT Fidel Triana MD LAB BLOOD ORDER FRANCISCO Final Result Performing Organization Address City/[facility] de Phone Number [facility] One [facility] [place] [address] * Comprehensive metabolic panel (09/24/2024 11:00 AM CDT) [facility] Sodium 143 135 - 145 mmol/L Potassium, pl 4.7 3.3 - 4.9 mmol/L [facility] Chloride 105 97 - 110 mmol/L [facility] CO2 29 22 - 32 mmol/L [facility] Anion gap 9 2 - 15 mmol/L [facility] BUN 12 6 - 25 mg/dL [facility] Creatinine 0.90 0.60 - 1.10 mg/dL [facility] Glucose 80 70 - 199 mg/dL [facility] Comment: Interpretive Data Fasting glucose >/= [...] 2022. Calcium 10.0 8.5 - 10.3 mg/dL [facility] Bilirubin, total 0.2 0.1 - 1.2 mg/dL [facility] Protein, pl 7.6 6.5 - 8.5 g/dL [facility] Albumin 4.6 3.5 - 5.0 g/dL [facility] Alk phos 70 40 - 130 Units/L [facility] ALT 25 7 - 45 Units/L [facility] AST 26 10 - 45 Units/L [facility] Blood 09/24/2024 11:0 0 AM CDT 09/24/2024 11:22 AM CDT Fidel Triana MD LAB BLOOD ORDER FRANCISCO Final Result [facility] [place] [address] * 48 HR Holter Monitor (09/10/2024 9:13 AM JEWELRY MAKER) Anatomical Region Laterality Modality Electrocardiogra phy 09/10/2024 9:21 AM JEWELRY MAKER Narrative 09/19/2024 1:[address] [facility] [place] [address] HOLTER MONITOR Patient Name: NITA HERNÁNDEZ E : 1965 (59y ) Gender: F Study Date: 09/10/2024 09:21:36 AM Ht(Inch): Wt(Lb): BSA: Tech: Location: [facility] Order Provider: MERY DUBOSE BMI: Ref Provider: MERY DUBOSE PROCEDURES: Holter Report: HOLTER MONITOR 48 HR [[id number]]. Enrollment Period: 09/10/2024 09:21 - 09/12/2024 09:21. Monitor Number: [employer] Mini Holter - [id number]. Patient Instructions: Tech educated patient and applied the monitor and patient given monitor in office during appointment, patient understands directions and use of equipment. Location: [facility]. INDICATIONS: R00.2 Palpitations. FINDINGS: Holter Data: Min Rate: 57 BPM Min Rate Timestamp: 2024-09-12 05:31:03 Max Rate: 133 BPM Max Rate Timestamp: 2024-09-10 19:45:56 Mean Rate: 78 BPM Singlets (PACs): 34 events Couplets (PACs): 1 events Total (SVE): 36 events Singlets (PVCs): 2 events Couplets (PVCs): 0 events Runs (VT): 5 events Total (VE): 7 events Total beats: 463312 Protocol: Recording Duration (Actual): 493210.3 Total QRS: 544470 SUMMARY: *The predominant rhythm was Sinus. *The [...] bpm, 09/11 20:14:36, and the Longest episode 5 beats, 09/11 20:14:36. *There were 36 SVE beats [...] bpm, 09/11 20:14:36, and the Longest episode 5 beats, 09/11 20:14:36. *There were 36 SVE beats [...] bpm, 09/11 20:14:36, and the Longest episode 5 beats, 09/11 20:14:36. *There were 36 SVE beats [...] bpm, 09/11 20:14:36, and the Longest episode 5 beats, 09/11 20:14:36. *There were 36 SVE beats [...] Note Johnie Spann MD PhD - 09/19/[address] [facility] [place] [address] HOLTER MONITOR Patient Name: NITA HERNÁNDEZ E : 1965 (59y ) Gender: F Study Date: 09/10/2024 09:21:36 AM Ht(Inch): Wt(Lb): BSA: Tech: Location: [facility] Order Provider: MERY DUBOSE BMI: Ref Provider: MERY DUBOSE PROCEDURES: Holter Report: HOLTER MONITOR 48 HR [[id number]]. Enrollment Period: 09/10/2024 09:21 - 09/12/2024 09:21. Monitor Number: [employer] Mini Holter - [id number]. Patient Instructions: Tech educated patient and applied the monitor andpatient given monitor in office during appointment, patient understands directions anduse of equipment. Location: [facility]. INDICATIONS: R00.2 Palpitations. FINDINGS: Holter Data: Min Rate: 57 BPM Min Rate Timestamp: 2024-09-12 05:31:03 Max Rate: 133 BPM Max Rate Timestamp: 2024-09-10 19:45:56 Mean Rate: 78 BPM Singlets (PACs): 34 events Couplets (PACs): 1 events Total (SVE): 36 events Singlets (PVCs): 2 events Couplets (PVCs): 0 events Runs (VT): 5 events Total (VE): 7 events Total beats: 200144 Protocol: Recording Duration (Actual): 457792.3 Total QRS: [id number] SUMMARY: *The predominant rhythm was Sinus. *The Maximum Heart Rate recorded was 133 bpm, 09/10 19:45:56, the MinimumHeart Rate recorded was 57 bpm, 09/12 05:31:03, and the Average Heart Rate was 78bpm. *There were 7 VE beats with a burden of <1 %. There was 1 occurrence ofVentricular Tachycardia with the Fastest episode 129 bpm, 09/11 20:14:36, and theLongest episode 5 beats, 09/11 20:14:36. *There were 36 SVE beats [...] bpm, 03/05 20:14:36, and the Longest episode 5beats, 05 20:14:36. *There were 36 SVE beats with a burden of <1 %. *There were 2 Patient Triggers. one with PVC, and 1 unassociated wrhythm. CONCLUSIONS: 1. *The predominant rhythm was Sinus. *The Maximum Heart Rate recorded was 133 bpm, / 19:45:56, the MinimumHeart Rate recorded was 57 [...] recorded was 133 bpm, 03/04 19:45:56, the MinimumHeart Rate recorded was 57 bpm, 03/06 05:31:03, and the Average Heart Rate was 78 bpm. *There were 7 VE beats with a burden of <1 %. There was 1 occurrence ofVentricular Tachycardia with the Fastest episode 129 bpm, /05 20:14:36, and the Longest episode 5beats, /05 20:14:36. *There were 36 SVE beats with [...] Spann Jr., M.D. 09/19/2024 12:20:31 PM CDT us Mery Dubose NP CV CARDIAC SERVICES PROCEDURE S Final Result * Vitamin D 25 hydroxy (09/09/2024 9:30 AM JEWELRY MAKER) Vitamin D 25-OH 38 30 - 80 ng/mL Blood 09/09/2024 9:30 AM JEWELRY MAKER 09/09/2024 10:22 AM JEWELRY MAKER us Mery Dubose ARCHITECTURAL MODELER LAB BLOOD ORDERABLES Final Re sult Performing Organization Address [facility]/ZIP Co de Phone Number [facility] [place] [address] * Vitamin B12 (09/09/2024 9:30 AM JEWELRY MAKER) Vitamin B12 592 230 - 1,250 pg/mL Blood 09/09/2024 9:30 AM JEWELRY MAKER 09/09/2024 10:22 AM JEWELRY MAKER us Mery Dubose ARCHITECTURAL MODELER LAB BLOOD ORDERABLES Final Re sult Performing Organization Address City/[facility] Co de Phone Number [facility] Department [place] [address] * POCT glucose (09/09/2024 8:14 AM JEWELRY MAKER) Glucose Blood, POC 88 mg/dL Blood 09/09/2024 8:14 AM JEWELRY MAKER us Mery Dubose ARCHITECTURAL MODELER POINT OF CARE TEST ORDERABLES Final Result * POCT lipid panel (09/09/2024 8:14 AM JEWELRY MAKER) Cholesterol, POC 167 mg/dL HDL, POC 72 mg/dL Triglycerides, POC 81 mg/dL LDL Cholesterol POC 79 mg/dL Chol/HDL Ratio, POC 2.3 Non-HDL Cholesterol, POC 95 mg/dL Capillary blood 09/09/2024 8 :14 AM JEWELRY MAKER Mery Dubose NP POINT OF CARE TEST ORDERABLES Final Result [...] compared to prior imaging studies performed at [facility] on 12/07/2022, and at [facility] on 11/11/2020 and 10/12/2021. There are scattered [...] compared to prior imaging studies performed at [facility] on 12/07/2022, and at [facility] on 11/11/2020 and 10/12/2021. There are scattered [...] THIS SPECIMEN WAS RESCREENED PART OF OUR STATISTICIAN THEORETICAL PROGRAM. Specimen adequacy: Comment [facility] - 01 Comment: Satisfactory for evaluation. Endocervical and/or squamous metaplastic cells (endocervical component) are present. Clinician provided ICD10 Comment [facility] - 01 Comment:Z01.419 Performed by Comment [facility] - 01 Comment:Alexis Ozuna, Cytot echnologist (ASCP) QC reviewed by Comment [...] - 12/18/2023 3:08 PM CDT Performed at: - [address], [place] [id number] Nuclear Radiologist: Shania Ma MD, Phone: [phone] Performed at: - [address] [id number] Nuclear Radiologist: Shania Ma MD, Phone: [phone] Specimen Comment: Source.............Cervix;Endocervix Specimen Comment: No. of containers..01 ThinPrep Vial Twan Guidry MD LAB CYTOLOGY ORDERABLES F inal Result [facility] - 01 LAB CRIS 02 * COLONOSCOPY [...] to request sample to be sent to [facility] for Hepatitis C Virus (HCV) RNA Detection and Quantitation by Real-Time [employer]-PCR (RT-PCR). Current interpretive data was last revised [...] Most Recently Relevant to Health Maintenance Insurance [facility] ACCESS Member Subscriber Plan / Payer ( fective 2019-Present) Name:Nita Hernández Relation to Subscriber:Spouse Name:CARMEN WORLEY Date of :[birth year]99 Payer ID:[id number] (NA) Group ID:[id number] Type:[employer] Address: [id number] [facility] Advance Directives For more information, please contact: [phone] * Full Code (Latest Code Status on File) Date Activated Date Inactivated Comments 07/06/2018 12:22 PM 07/06/2018 4:52 PM Care Teams Clutch Operator Relationship Specialty Start Date End Date Ze Alberts MD [address] [place] [address] PCP - General 09/23/20 Antoine Martinez MD [address] [place] [id number] Operational Review Sergeant Pulmonary Disease 07/18/23 Fidel Triana MD [address] [place] [id number] Medical Oncologist/Electric Meter Repairer Apprentice Medical Oncology 07/18/23 Josesito Santamaria MD [address] [place] [address] Consulting Physician 07/10/16
[2024-10-13 07:36] LABS: T4 Thyroxine 7.62 ug/dL (5.53-11.0)
[2024-10-13] MEDS: NITROFURANTOIN MONOHYD MACROCR 100 MG CAP PO (08:27)
[2024-10-13 08:44] LABS: Free T3 2.93 pg/mL (2.71-6.16)
== END 2024-10-13 09:22 | disposition home or self-care (01) ==
PROVIDERS: Emergency Provider Student in an Organized Health Care Education/Training Program; PCP Internal Medicine
DX: T45.0X2A Poisoning by antiallergic and antiemetic drugs, intentional self-harm, initial encounter (principal); N39.0 Urinary tract infection, site not specified; E03.8 Other specified hypothyroidism; Z20.822 Contact with and (suspected) exposure to COVID-19
CPT/HCPCS: 36415; 80053; 80143; 80179; 80307; 81001; 81025; 82077; 84436; 84443; 84481; 85025; 87086; 87635; 93005; 99284; A9270